=== PATIENT | female | born 1945 | race Caucasian/White ===

== ENCOUNTER → 2017-06-28 17:39 | Emergency (ER) | payer MEDICARE, OTHER ==
[2017-06-28 17:47] VITALS: BP 210/101
== END | disposition left against medical advice (07) ==
LOC: ED 17:39
DX: M54.5 Low back pain (principal); Z53.21 Procedure and treatment not carried out due to patient leaving prior to being seen by health care provider

== ENCOUNTER 2019-03-11 19:13 | Emergency (ER) | payer MEDICARE, OTHER ==
--- NOTE | 2019-03-11 19:52 | ED ---
Adult Trauma - HPI Summary HPI Summary: A 73 y/o female brought in by [facility] ambulance presents to [facility] with a chief complaint of a mechanical fall this afternoon. The patient was putting up a clock on the wall when she fell. The patient rates her pain as a 3/10 in severity. She denies any LOC or neck pain. - History of Current Complaint Chief Complaint: EDHeadInjury Stated Complaint: FALL PER EMS Time Seen by Provider: 03/11/19 19:34 Hx Obtained From: Patient Mechanism of Injury: Fall Loss of Consciousness: no loss of consciousness Onset/Duration: Started Hours Ago, Still Present Onset of Pain: Immediate, Post Accident, Prior to Arrival Onset Severity: Mild Current Severity: Mild Pain Intensity: 3 Pain Scale Used: 0-10 Numeric Location: Head Aggravating Factor(s): Nothing Alleviating Factor(s): Nothing Associated Signs & Symptoms: Negative: Fever, Loss of Consciousness - Allergy/Home Medications Allergies/Adverse Reactions: Allergies Allergy/AdvReac Type Severity Reaction Status Date / Time MS Antihistamines, Allergy See Comment Verified 06/28/17 17:45 Diphenhydrami... [Antihistamines, Diphenhydramine-typ] MS Bee Venom [Bee Venom] Allergy Anaphylatic Verified 06/28/17 17:45 Shock MS Penicillins [Penicillins] Allergy Difficulty Verified 06/28/17 17:45 Breathing PMH/Surg Hx/FS Hx/Imm Hx Respiratory History: Reports: Hx Chronic Obstructive Pulmonary Disease (COPD) Musculoskeletal History: Denies: Hx Osteoporosis Sensory History: Denies: Hx Deafness EENT History: Denies: Hx Deafness - Cancer History Cancer Type, Location and Year: BREAST CA Hx Chemotherapy: Yes Hx Radiation Therapy: Yes - Surgical History Surgery Procedure, Year, and Place: BILATERAL HIP REPLACEMENTS Infectious Disease History: No Infectious Disease History: Denies: Traveled Outside the [place] in Last 30 Days - Family History Known Family History: Negative: Blood Disorder - Social History Alcohol Use: Occasionally Substance Use Type: Reports: None Smoking Status (MU): Former Smoker Review of Systems Negative: Fever Positive: Other - negative: neck pain Positive: Other - positive: scalp laceration Neurological: Other - negative: LOC All Other Systems Reviewed And Are Negative: Yes Physical Exam - Summary Physical Exam Summary: VITAL SIGNS: Reviewed. GENERAL: Patient is a well-developed and nourished FEMALE who is lying comfortable in the stretcher. Patient is not in any acute respiratory distress. HEAD AND FACE: No signs of trauma. No ecchymosis, hematomas or skull depressions. No sinus tenderness. EYES: PERRLA, EOMI x 2, No injected conjunctiva, no nystagmus. EARS: Hearing grossly intact. Ear canals and tympanic membranes are within normal limits. MOUTH: Oropharynx within normal limits. NECK: Supple, trachea is midline, no adenopathy, no JVD, no carotid bruit, no c- spine tenderness, neck with full ROM CHEST: Symmetric, no tenderness at palpation LUNGS: Clear to auscultation bilaterally. No wheezing or crackles. CVS: Regular rate and rhythm, S1 and S2 present, no murmurs or gallops appreciated. ABDOMEN: Soft, non-tender. No signs of distention. No rebound no guarding, and no masses palpated. Bowel sounds are normal. EXTREMITIES: FROM in all major joints, no edema, no cyanosis or clubbing. NEURO: Alert and oriented x 3. No acute neurological deficits. Speech is normal and follows commands. SKIN: Dry and warm, multi branch scalp laceration 3 branches about 1 inch each Triage Information Reviewed: Yes Vital Signs On Initial Exam: Initial Vitals Temp Pulse Resp BP Pulse Ox 97.7 F 79 16 146/87 93 03/11/19 19:17 03/11/19 19:17 03/11/19 19:17 03/11/19 19:17 03/11/19 19:17 Vital Signs Reviewed: Yes - Ramos Coma Scale Best Eye Response: 4 - Spontaneous Best Motor Response: 6 - Obeys Commands Best Verbal Response: 5 - Oriented Coma Scale Total: 15 Procedures - Laceration/Wound Repair 1 Location: head Description: Irregular Anesthesia: 2.0%, Lido, Epi Length, Depth and Shape: multi branch scalp laceration 3 branches about 1 inch each. Closure: [place] #__ - 12 Diagnostics - Vital Signs Vital Signs Temp Pulse Resp BP Pulse Ox 03/11/19 19:17 97.7 F 79 16 146/87 93 - Laboratory Lab Statement: Any lab studies that have been ordered have been reviewed, and results considered in the medical decision making process. - CT Brain CT Interpretation Completed By: Radiologist Summary of CT Findings: 1. Posterior left parietal superficial contusion/ laceration with no acute. intracranial abnormality. 2. Age-related atrophy and mild chronic small vessel ischemic disease. ED physician has reviewed this imaging report. Re-Evaluation - Re-Evaluation First Eval Re-Evaluation Time: 21:50 Change: Unchanged Comment: lac repair Adult Trauma Course/Dx - Course Course Of Treatment: A 73 y/o female brought in by [facility] ambulance presents to [facility] with a chief complaint of a mechanical fall this afternoon. The patient was putting up a clock on the wall when she fell. The physical exam revealed multi branch scalp laceration 3 branches about 1 inch each. GSC 15. Laceration was repaired. Lidociane 2% with epi and [address] impression: 1. Posterior left parietal superficial contusion/laceration with no acute. intracranial abnormality. 2. Age-related atrophy and mild chronic small vessel ischemic disease. The patient was instructed to get her eunice removed in 2 weeks. She will be discharged and follow up with her PCP. The patient is agreeable with this plan. - Diagnoses Provider Diagnoses: Scalp laceration, Head injury Discharge - Sign-Out/Discharge Documenting (check all that apply): Patient Departure - DC Patient Received Moderate/Deep Sedation with Procedure: No - Discharge Plan Condition: Stable Disposition: HOME Patient Education Materials: Laceration (DC), Head Injury (ED) Referrals: Valentín Otoole MD [Primary Care Provider] - 3 Days Additional Instructions: Get your eunice removed in 2 weeks. PLEASE RETURN TO THE ED IMMEDIATELY FOR WORSENING OR CONCERNING SYMPTOMS. - Billing Disposition and Condition Condition: STABLE Disposition: Home - Attestation Statements Document Initiated by Scribe: Yes Documenting Scribe: Vamshi German Provider For Whom Elise is Documenting (Include Credential): Dayanna Martinez MD Scribe Attestation: Vamshi Guerrero, scribed for Dayanna Martinez MD on 03/12/19 at 0510. Scribe Documentation Reviewed: Yes Provider Attestation: The documentation as recorded by the Vamshi lynne accurately reflects the service I personally performed and the decisions made by me, Dayanna Martinez MD Status of Scribe Document: Viewed
[2019-03-11] MEDS ORDERED: Lidocaine 2% w/ EPI 1:200,000* 20 ML VIAL ONE (21:26)
[2019-03-11] MEDS ORDERED: Tetan/Diph/Pertus SYR(Tdap)* 0.5 ML SYR(BOOSTRIX) use SYR IM ONE (21:58)
[2019-03-11 22:13] VITALS: BP 158/101
== END 2019-03-11 22:11 | disposition home or self-care (01) ==
LOC: ED 19:13
DX: S01.01XA Laceration without foreign body of scalp, initial encounter (principal); S09.90XA Unspecified injury of head, initial encounter; Z23 Encounter for immunization; W19.XXXA Unspecified fall, initial encounter; J44.9 Chronic obstructive pulmonary disease, unspecified; Z87.891 Personal history of nicotine dependence
CPT/HCPCS: 12002; 70450; 90471; 90715; 96372; 99283

== ENCOUNTER 2022-03-15 14:27 | Inpatient (IN) ==
[2022-03-15 14:45] LABS: ABS Basophils 0.1 10^3/ul (0-0.2); ABS Lymphocytes 1.7 10^3/ul (1.0-4.8); ABS Monocytes 1.2 10^3/ul (0-0.8); ABS Neutrophils 16.9 10^3/ul (1.5-7.7); Eosinophil % 0.2 %; Hematocrit 34 % (35-47); Hemoglobin 10.8 g/dL (12.0-16.0); Lymphocyte % 8.5 %; Mean Corpuscular HGB Conc 32 g/dL (31-36); Mean Corpuscular Hemoglobin 27 pg (27-31); Mean Corpuscular Volume 84 fL (80-97); Mean Platelet Volume 7.1 fL (7.4-10.4); Platelet Count 511 10^3/uL (150-450); Red Blood Count 4.08 10^6 /uL (3.70-4.87); Red Cell Distribution Width 17 % (10-15); White Blood Count 19.9 10^3/uL (3.5-10.8)
[2022-03-15] MEDS ORDERED: NS 0.9% 1000 ml BAG 1,000 ML IV ONE ×3 (14:50→20:10)
[2022-03-15 15:14] LABS: Albumin 2.9 g/dL (3.2-5.2); Calcium 8.8 mg/dL (8.6-10.3); Globulin 2.8 g/dL (2-4); Magnesium 2.4 mg/dL (1.9-2.7); Potassium 4.8 mmol/L (3.5-5.0); Total Bilirubin 0.5 mg/dL (0.2-1.0); Total Protein 5.7 g/dL (6.4-8.9); eGFR CKD-EPI 25.3 (>60)
[2022-03-15 15:24] LABS: INR 1.05 (0.86-1.15)
[2022-03-15 17:07] LABS: Calcium 7.9 mg/dL (8.6-10.3); Potassium 4.4 mmol/L (3.5-5.0); eGFR CKD-EPI 27.5 (>60)
[2022-03-15] MEDS ORDERED: Morphine 4 MG/ML VIAL (1 ml) IV ONE (17:58)
[2022-03-15] MEDS ORDERED: NS 0.9% 1000 ml BAG 1,000 ML IV SCH (18:15)
[2022-03-15] MEDS ORDERED: Morphine 2 MG/ML SYRINGE IV PRN (18:19)
[2022-03-15] MEDS ORDERED: Heparin 5000 UNITS/ML 1 mL VIAL IV SCH ×2 (20:00→21:00)
[2022-03-15] MEDS ORDERED: Heparin DRIP 25,000 UNITS BAG 25,000 UNITS/500 ML BAG IV SCH (20:15)
[2022-03-15 20:59] LABS: Phosphorus 5.3 mg/dL (2.5-5.0)
[2022-03-15] MEDS ORDERED: Piperacillin/Tazobac ADVAN 3.375 GM in NS 0.9% 100 ml BAG 100 ML IV ONE (21:13)
[2022-03-15 21:14] LABS: TSH Ultra Thyroid Stim Horm 7.58 mcIU/mL (0.34-5.60)
[2022-03-15] MEDS ORDERED: Zosyn per Pharmacy NOTE FOLLOW UP SCH (22:00)
[2022-03-15 22:15] LABS: Urine Benzodiazepine Screen None Detected (None Detect); Urine Cannabinoids Screen None Detected (None Detect); Urine Opiates Screen Presumptive Positive (None Detect)
[2022-03-15 22:19] LABS: T4, Total 3.7 mcg/dL (6.09-12.23)
[2022-03-15 22:21] LABS: Urine Appearance Turbid; Urine Bilirubin Negative (Negative); Urine Blood 2+ (Negative); Urine Color Yellow; Urine Glucose Negative (Negative); Urine Ketones Trace (Negative); Urine Nitrite Negative (Negative); Urine Protein 2+(100 mg/dL) (Negative); Urine Specific Gravity 1.013 (1.002-1.030); Urine Urobilinogen Negative (Negative)
[2022-03-15 22:24] LABS: Urine Bacteria Absent (Absent); Urine Red Blood Cell Absent (Absent); Urine White Blood Cell 3+(>20/hpf) (Absent)
[2022-03-15] MEDS ORDERED: Albuterol HFA INHALER 8 gm MDI INH PRN (22:27)
[2022-03-15] MEDS ORDERED: Dextrose 50% VIAL 50 ml IV PRN (23:31)
[2022-03-16] MEDS ORDERED: Dextrose 50% Syringe 50 ml 25 GM/50 ML SYRINGE IV PUSH PRN (00:02)
[2022-03-16] MEDS: Acetaminophen IV 1 GM/100ML 100 ML IV PRN ×4 (00:36→20:05)
[2022-03-16] MEDS ORDERED: ZOSYN 3.375 GM Q12H per EXTENDED INFUSION IV SCH (06:00)
[2022-03-16 06:52] LABS: ABS Eosinophils 0.1 10^3/ul (0-0.6); ABS Lymphocytes 1.3 10^3/ul (1.0-4.8); ABS Monocytes 1.2 10^3/ul (0-0.8); ABS Neutrophils 13.5 10^3/ul (1.5-7.7); Eosinophil % 0.5 %; Hematocrit 27 % (35-47); Hemoglobin 8.5 g/dL (12.0-16.0); Mean Corpuscular HGB Conc 32 g/dL (31-36); Mean Corpuscular Hemoglobin 27 pg (27-31); Mean Corpuscular Volume 84 fL (80-97); Mean Platelet Volume 7.1 fL (7.4-10.4); Platelet Count 358 10^3/uL (150-450); Red Blood Count 3.16 10^6 /uL (3.70-4.87); Red Cell Distribution Width 17 % (10-15); White Blood Count 16.1 10^3/uL (3.5-10.8)
[2022-03-16] MEDS ORDERED: Morphine 2 MG/ML SYRINGE IV PRN (09:25)
[2022-03-16] MEDS ORDERED: Lactated Ringers 500 ml BAG 500 ML IV ONE (09:34)
[2022-03-16] MEDS: Lactated Ringers 1000 ml BAG 1,000 ML IV SCH ×3 (09:50→21:27)
[2022-03-16 10:54] LABS: Albumin 2.2 g/dL (3.2-5.2); Magnesium 1.9 mg/dL (1.9-2.7)
[2022-03-16 10:55] LABS: Calcium 7.5 mg/dL (8.6-10.3); Potassium 3.7 mmol/L (3.5-5.0); Total Bilirubin 0.6 mg/dL (0.2-1.0)
[2022-03-16 11:00] LABS: Globulin 2.3 g/dL (2-4); HDL Cholesterol 27.3 mg/dL; Total Protein 4.5 g/dL (6.4-8.9)
[2022-03-16 11:04] LABS: eGFR CKD-EPI 32.2 (>60)
[2022-03-16] MEDS ORDERED: NS 0.9% 500 ml BAG 500 ML IV ONE (12:02)
[2022-03-16 12:20] LABS: Urine Appearance Turbid; Urine Bilirubin Negative (Negative); Urine Blood 2+ (Negative); Urine Color Yellow; Urine Glucose Negative (Negative); Urine Ketones Trace (Negative); Urine Nitrite Negative (Negative); Urine Protein 2+(100 mg/dL) (Negative); Urine Specific Gravity 1.015 (1.002-1.030); Urine Urobilinogen Negative (Negative)
[2022-03-16 12:47] LABS: Urine Bacteria Absent (Absent); Urine Red Blood Cell 3+(>10/hpf) (Absent); Urine White Blood Cell 3+(>20/hpf) (Absent)
[2022-03-16] MEDS ORDERED: Norepinephrine 16MCG/ML BAGD5W 4,000 MCG/250 ML BAG IV ONE (13:38)
[2022-03-16] MEDS: Norepinephrine 16MCG/ML BAGD5W 4,000 MCG/250 ML BAG IV SCH (13:55)
[2022-03-16 13:58] LABS: ABS Basophils 0.1 10^3/ul (0-0.2); ABS Eosinophils 0.1 10^3/ul (0-0.6); ABS Lymphocytes 1.3 10^3/ul (1.0-4.8); ABS Monocytes 0.9 10^3/ul (0-0.8); ABS Neutrophils 13.9 10^3/ul (1.5-7.7); Eosinophil % 0.5 %; Hematocrit 26 % (35-47); Hemoglobin 8.1 g/dL (12.0-16.0); Lymphocyte % 7.9 %; Mean Corpuscular HGB Conc 32 g/dL (31-36); Mean Corpuscular Hemoglobin 27 pg (27-31); Mean Corpuscular Volume 85 fL (80-97); Mean Platelet Volume 6.7 fL (7.4-10.4); Platelet Count 366 10^3/uL (150-450); Red Blood Count 3.04 10^6 /uL (3.70-4.87); Red Cell Distribution Width 17 % (10-15); White Blood Count 16.2 10^3/uL (3.5-10.8)
[2022-03-16 14:53] LABS: C Reactive Protein 199.44 mg/L (<8.01); Calcium 7.1 mg/dL (8.6-10.3); Potassium 3.7 mmol/L (3.5-5.0); Total Bilirubin 0.6 mg/dL (0.2-1.0); eGFR CKD-EPI 34.1 (>60)
[2022-03-16 15:43] LABS: Phosphorus 3.6 mg/dL (2.5-5.0)
[2022-03-16] MEDS: Piperacillin/Tazobac ADVAN 3.375 GM in NS 0.9% 100 ml BAG 100 ML IV SCH (17:02)
[2022-03-16] MEDS ORDERED: fentaNYL 100 mcg/2 ml 50 MCG/ML VIAL IV SLOW PU PRN (21:28)
[2022-03-17] MEDS: Piperacillin/Tazobac ADVAN 3.375 GM in NS 0.9% 100 ml BAG 100 ML IV SCH ×3 (00:44→15:50)
[2022-03-17 05:30] LABS: ABS Basophils 0.2 10^3/ul (0-0.2); ABS Eosinophils 0.1 10^3/ul (0-0.6); ABS Lymphocytes 1.6 10^3/ul (1.0-4.8); ABS Monocytes 1.1 10^3/ul (0-0.8); ABS Neutrophils 18.3 10^3/ul (1.5-7.7); Eosinophil % 0.5 %; Hematocrit 28 % (35-47); Hemoglobin 8.7 g/dL (12.0-16.0); Lymphocyte % 7.3 %; Mean Corpuscular HGB Conc 31 g/dL (31-36); Mean Corpuscular Hemoglobin 26 pg (27-31); Mean Corpuscular Volume 83 fL (80-97); Mean Platelet Volume 6.8 fL (7.4-10.4); Platelet Count 392 10^3/uL (150-450); Red Blood Count 3.35 10^6 /uL (3.70-4.87); Red Cell Distribution Width 18 % (10-15); White Blood Count 21.3 10^3/uL (3.5-10.8)
[2022-03-17 06:05] LABS: Albumin 2.1 g/dL (3.2-5.2); C Reactive Protein 278.57 mg/L (<8.01); Calcium 7.3 mg/dL (8.6-10.3); Globulin 2.2 g/dL (2-4); Magnesium 1.5 mg/dL (1.9-2.7); Phosphorus 3.6 mg/dL (2.5-5.0); Potassium 3.7 mmol/L (3.5-5.0); Total Bilirubin 0.7 mg/dL (0.2-1.0); Total Protein 4.3 g/dL (6.4-8.9); eGFR CKD-EPI 38.8 (>60)
[2022-03-17] MEDS: Lactated Ringers 1000 ml BAG 1,000 ML IV SCH ×2 (07:01→15:56)
[2022-03-17] MEDS ORDERED: Magnesium Sulfate IV 3 GM in NS 0.9% 100 ml BAG 100 ML IVPB ONE (07:23)
[2022-03-17] MEDS: Norepinephrine 16MCG/ML BAGD5W 4,000 MCG/250 ML BAG IV SCH ×2 (07:28)
[2022-03-17] MEDS ORDERED: Magnesium Sulfate 4 GM IV IVPB ONE (07:30)
[2022-03-17] MEDS: Acetaminophen IV 1 GM/100ML 100 ML IV PRN (07:34)
[2022-03-17] MEDS ORDERED: Vancomycin per Pharmacy 1 EA NOTE FOLLOW UP PRN (08:17)
[2022-03-17] MEDS ORDERED: Vancomycin 1,000 MG in NS 0.9% 250 ml 250 ML IVPB ONE (08:30)
[2022-03-17] MEDS ORDERED: Magnesium Sulfate 1 GM IV 1 GM/100 ML BAG IV ONE (11:00)
[2022-03-17] MEDS ORDERED: Magnesium Sulfate 2 gm BAG 2 GM/50 ML BAG IVPB ONE (11:00)
[2022-03-17] MEDS ORDERED: Rocuronium 50 mg VIAL 10 mg/ml 5 ml VIAL (50 mg) ONE (11:34)
[2022-03-17] MEDS ORDERED: Dexamethasone IV 4 MG/ML VIAL 1 ml VIAL ONE (11:34)
[2022-03-17] MEDS ORDERED: Propofol 10 MG/ML 20 ML BTL ONE (11:34)
[2022-03-17] MEDS ORDERED: fentaNYL 100 mcg/2 ml 50 MCG/ML VIAL ONE (11:34)
[2022-03-17] MEDS ORDERED: Ondansetron 4 mg VIAL 2 MG/ML 2 ml VIAL ONE (11:34)
[2022-03-17] MEDS ORDERED: Lidocaine 2% PF 5 ML VIAL ONE (11:34)
[2022-03-17] MEDS ORDERED: Midazolam 5 mg/5 ml VIAL 1 mg/ml 5 ml VIAL (5 mg) ONE (12:09)
[2022-03-17] MEDS ORDERED: Etomidate 20 mg/10 ml 2 MG/ML 10 ml VIAL ONE (12:09)
[2022-03-17] MEDS ORDERED: Etomidate 40 mg/20 ml (2 MG/ML) 20 ml VIAL (40 mg) ONE (12:12)
[2022-03-17] MEDS ORDERED: Albumin Human 5% 12.5 GM/250 ML BTL IV ONE ×2 (13:00→14:30)
[2022-03-17] MEDS ORDERED: Norepinephrine 16MCG/ML BAG NS 4,000 MCG/250 ML BAG IV ONE (14:48)
[2022-03-17] MEDS ORDERED: Propofol 10 mg/ml 100 ML BTL 100 ML ONE (15:23)
[2022-03-17] MEDS: Propofol 10 mg/ml 100 ML BTL 100 ML IV SCH (16:09)
[2022-03-17] MEDS: Pantoprazole VIAL 40 MG VIAL IV SCH (17:10)
[2022-03-17] MEDS: Chlorhexidine MOUTHWASH 0.12% 15 ML UDC SWISH SPIT SCH (17:10)
[2022-03-18] MEDS: Chlorhexidine MOUTHWASH 0.12% 15 ML UDC SWISH SPIT SCH ×5 (00:10→14:32)
[2022-03-18] MEDS: Piperacillin/Tazobac ADVAN 3.375 GM in NS 0.9% 100 ml BAG 100 ML IV SCH ×3 (00:12→16:30)
[2022-03-18] MEDS: Acetaminophen IV 1 GM/100ML 100 ML IV PRN ×2 (00:47→09:07)
[2022-03-18] MEDS: Lactated Ringers 1000 ml BAG 1,000 ML IV SCH ×3 (03:20→23:51)
[2022-03-18 04:45] LABS: Hematocrit 27 % (35-47); Hemoglobin 8.2 g/dL (12.0-16.0); Mean Corpuscular HGB Conc 31 g/dL (31-36); Mean Corpuscular Hemoglobin 26 pg (27-31); Mean Corpuscular Volume 83 fL (80-97); Mean Platelet Volume 7.2 fL (7.4-10.4); Platelet Count 311 10^3/uL (150-450); Red Blood Count 3.21 10^6 /uL (3.70-4.87); Red Cell Distribution Width 18 % (10-15); White Blood Count 26.1 10^3/uL (3.5-10.8)
[2022-03-18 05:04] LABS: Albumin 2.2 g/dL (3.2-5.2); Albumin/Globulin Ratio 1.3 (1-3); Calcium 7.2 mg/dL (8.6-10.3); Globulin 1.7 g/dL (2-4); Magnesium 2.5 mg/dL (1.9-2.7); Phosphorus 4.3 mg/dL (2.5-5.0); Potassium 4.3 mmol/L (3.5-5.0); Total Bilirubin 0.7 mg/dL (0.2-1.0); Total Protein 3.9 g/dL (6.4-8.9); Vancomycin Random 9.6 mcg/mL; eGFR CKD-EPI 41.6 (>60)
[2022-03-18] MEDS: Norepinephrine 16MCG/ML BAGD5W 4,000 MCG/250 ML BAG IV SCH (05:45)
[2022-03-18] MEDS ORDERED: Vancomycin Random Level NOTE FOLLOW UP ONE (06:00)
[2022-03-18 07:14] LABS: ABS Basophils 0.1 10^3/ul (0-0.2); ABS Lymphocytes 0.8 10^3/ul (1.0-4.8); ABS Monocytes 0.8 10^3/ul (0-0.8); ABS Neutrophils 24.5 10^3/ul (1.5-7.7); Lymphocyte % 3.2 %
[2022-03-18] MEDS: Propofol 10 mg/ml 100 ML BTL 100 ML IV SCH (07:20)
[2022-03-18] MEDS: Pantoprazole VIAL 40 MG VIAL IV SCH (07:55)
[2022-03-18] MEDS ORDERED: Vancomycin 750 MG in NS 0.9% 250 ML IVPB ONE (09:00)
[2022-03-19] MEDS: Piperacillin/Tazobac ADVAN 3.375 GM in NS 0.9% 100 ml BAG 100 ML IV SCH ×3 (00:16→17:10)
[2022-03-19 05:10] LABS: ABS Basophils 0.1 10^3/ul (0-0.2); ABS Monocytes 1.1 10^3/ul (0-0.8); ABS Neutrophils 18.1 10^3/ul (1.5-7.7); Hematocrit 23 % (35-47); Lymphocyte % 4.9 %; Mean Corpuscular HGB Conc 31 g/dL (31-36); Mean Corpuscular Hemoglobin 26 pg (27-31); Mean Corpuscular Volume 84 fL (80-97); Mean Platelet Volume 7.5 fL (7.4-10.4); Platelet Count 254 10^3/uL (150-450); Red Blood Count 2.67 10^6 /uL (3.70-4.87); Red Cell Distribution Width 19 % (10-15); White Blood Count 20.3 10^3/uL (3.5-10.8)
[2022-03-19 05:27] LABS: Albumin/Globulin Ratio 1.1 (1-3); Globulin 1.8 g/dL (2-4); Magnesium 2.1 mg/dL (1.9-2.7); Phosphorus 3.6 mg/dL (2.5-5.0); Potassium 4.3 mmol/L (3.5-5.0); Total Bilirubin 0.4 mg/dL (0.2-1.0); Total Protein 3.8 g/dL (6.4-8.9); Vancomycin Random 12.6 mcg/mL; eGFR CKD-EPI 48.5 (>60)
[2022-03-19] MEDS ORDERED: Vancomycin Random Level NOTE FOLLOW UP ONE (06:00)
[2022-03-19 07:53] LABS: C Reactive Protein 228.69 mg/L (<8.01)
[2022-03-19] MEDS: Pantoprazole VIAL 40 MG VIAL IV SCH (10:16)
[2022-03-19 10:21] LABS: Activated Partial Thrombo Time 33.3 seconds (26.0-38.0); INR 1.15 (0.86-1.15)
[2022-03-19 12:50] LABS: Hematocrit 24 % (35-47); Hemoglobin 7.4 g/dL (12.0-16.0)
[2022-03-19] MEDS ORDERED: Vancomycin 750 MG in NS 0.9% 250 ML IVPB ONE (15:00)
[2022-03-19] MEDS: Heparin 5000 UNITS/ML 1 mL VIAL SUBCUT SCH (20:46)
[2022-03-20] MEDS: Piperacillin/Tazobac ADVAN 3.375 GM in NS 0.9% 100 ml BAG 100 ML IV SCH ×3 (00:17→16:57)
[2022-03-20 04:25] LABS: Hematocrit 24 % (35-47); Hemoglobin 7.6 g/dL (12.0-16.0); Mean Corpuscular HGB Conc 31 g/dL (31-36); Mean Corpuscular Hemoglobin 27 pg (27-31); Mean Corpuscular Volume 85 fL (80-97); Mean Platelet Volume 7.3 fL (7.4-10.4); Platelet Count 226 10^3/uL (150-450); Red Blood Count 2.86 10^6 /uL (3.70-4.87); Red Cell Distribution Width 19 % (10-15); White Blood Count 16.3 10^3/uL (3.5-10.8)
[2022-03-20 05:04] LABS: C Reactive Protein 186.74 mg/L (<8.01); Calcium 7.4 mg/dL (8.6-10.3); Magnesium 1.9 mg/dL (1.9-2.7); Potassium 4.3 mmol/L (3.5-5.0); Vancomycin Random 16.2 mcg/mL; eGFR CKD-EPI 55.1 (>60)
[2022-03-20 06:00] LABS: Anisocytosis 1+; Basophilic Stippling 1+
[2022-03-20] MEDS ORDERED: Vancomycin Random Level NOTE FOLLOW UP ONE (06:00)
[2022-03-20 06:01] LABS: RBC Morphology Normal (Normal)
[2022-03-20 06:02] LABS: ABS Eosinophils 0.1 10^3/ul (0-0.6); ABS Lymphocytes 1.1 10^3/ul (1.0-4.8); ABS Monocytes 1.3 10^3/ul (0-0.8); ABS Neutrophils 13.7 10^3/ul (1.5-7.7); Eosinophil % 0.5 %; Lymphocyte % 6.9 %; Nucleated Red Blood Cells % 0.1
[2022-03-20] MEDS: Heparin 5000 UNITS/ML 1 mL VIAL SUBCUT SCH (09:15)
[2022-03-20] MEDS: Pantoprazole VIAL 40 MG VIAL IV SCH (09:15)
[2022-03-20] MEDS: Vancomycin 750 MG in NS 0.9% 250 ML IVPB SCH (10:08)
[2022-03-20] MEDS: Acetaminophen IV 1 GM/100ML 100 ML IV PRN ×2 (10:35→20:53)
[2022-03-20] MEDS ORDERED: Prochlorperazine 5 mg/ml 2 ml VIAL (10 mg) IV PRN (11:41)
[2022-03-20] MEDS: fentaNYL 100 mcg/2 ml 50 MCG/ML VIAL IV SLOW PU PRN (23:46)
[2022-03-21] MEDS: Piperacillin/Tazobac ADVAN 3.375 GM in NS 0.9% 100 ml BAG 100 ML IV SCH ×4 (00:25→23:58)
[2022-03-21 04:17] LABS: Hematocrit 23 % (35-47); Hemoglobin 6.9 g/dL (12.0-16.0); Mean Corpuscular HGB Conc 30 g/dL (31-36); Mean Corpuscular Hemoglobin 25 pg (27-31); Mean Corpuscular Volume 84 fL (80-97); Mean Platelet Volume 7.5 fL (7.4-10.4); Platelet Count 238 10^3/uL (150-450); Red Blood Count 2.73 10^6 /uL (3.70-4.87); Red Cell Distribution Width 19 % (10-15); White Blood Count 12.5 10^3/uL (3.5-10.8)
[2022-03-21 04:29] LABS: ABS Basophils 0.1 10^3/ul (0-0.2); ABS Eosinophils 0.2 10^3/ul (0-0.6); ABS Lymphocytes 1.3 10^3/ul (1.0-4.8); ABS Monocytes 1.2 10^3/ul (0-0.8); ABS Neutrophils 9.7 10^3/ul (1.5-7.7); Eosinophil % 1.8 %; Lymphocyte % 10.3 %; Nucleated Red Blood Cells % 0.1
[2022-03-21 04:41] LABS: Calcium 7.1 mg/dL (8.6-10.3); Magnesium 1.7 mg/dL (1.9-2.7); Potassium 4.1 mmol/L (3.5-5.0); eGFR CKD-EPI 66.2 (>60)
[2022-03-21] MEDS ORDERED: Magnesium Sulfate 2 gm BAG 2 GM/50 ML BAG IVPB ONE (08:00)
[2022-03-21] MEDS: Pantoprazole VIAL 40 MG VIAL IV SCH (09:00)
[2022-03-21] MEDS: Vancomycin 750 MG in NS 0.9% 250 ML IVPB SCH (09:00)
[2022-03-21] MEDS: fentaNYL 100 mcg/2 ml 50 MCG/ML VIAL IV SLOW PU PRN ×4 (09:08→23:55)
[2022-03-21 15:38] LABS: Hematocrit 26 % (35-47); Hemoglobin 7.8 g/dL (12.0-16.0)
[2022-03-21] MEDS ORDERED: NS 0.9% 100 ml BAG 100 ML ONE (18:05)
[2022-03-22] MEDS ORDERED: NS 0.9% 1000 ml BAG 250 ML IV ONE (03:30)
[2022-03-22 06:08] LABS: ABS Basophils 0.1 10^3/ul (0-0.2); ABS Eosinophils 0.2 10^3/ul (0-0.6); ABS Lymphocytes 1.8 10^3/ul (1.0-4.8); ABS Monocytes 1.2 10^3/ul (0-0.8); ABS Neutrophils 13.4 10^3/ul (1.5-7.7); Eosinophil % 1.2 %; Hematocrit 23 % (35-47); Hemoglobin 7.2 g/dL (12.0-16.0); Lymphocyte % 10.5 %; Mean Corpuscular HGB Conc 31 g/dL (31-36); Mean Corpuscular Hemoglobin 26 pg (27-31); Mean Corpuscular Volume 84 fL (80-97); Platelet Count 356 10^3/uL (150-450); Red Blood Count 2.78 10^6 /uL (3.70-4.87); Red Cell Distribution Width 19 % (10-15); White Blood Count 16.6 10^3/uL (3.5-10.8)
[2022-03-22] MEDS: fentaNYL 100 mcg/2 ml 50 MCG/ML VIAL IV SLOW PU PRN ×4 (06:33→19:32)
[2022-03-22 06:35] LABS: Albumin 1.8 g/dL (3.2-5.2); Calcium 7.4 mg/dL (8.6-10.3); Magnesium 1.9 mg/dL (1.9-2.7); Potassium 4.3 mmol/L (3.5-5.0); Total Bilirubin 0.5 mg/dL (0.2-1.0)
[2022-03-22 06:41] LABS: Albumin/Globulin Ratio 0.9 (1-3); Total Protein 3.8 g/dL (6.4-8.9)
[2022-03-22] MEDS: Piperacillin/Tazobac ADVAN 3.375 GM in NS 0.9% 100 ml BAG 100 ML IV SCH ×2 (07:58→16:28)
[2022-03-22] MEDS: Saline FLUSH-CENTRAL 10 ML SYRINGE CENT\\PICC SCH ×2 (07:59→19:33)
[2022-03-22] MEDS ORDERED: Metoprolol Tartrate 5 mg VIAL 5 ml VIAL (1 mg/ml) IV ONE (08:20)
[2022-03-22] MEDS ORDERED: Vancomycin Trough Check NOTE FOLLOW UP ONE (08:30)
[2022-03-22] MEDS: Vancomycin 750 MG in NS 0.9% 250 ML IVPB SCH (08:55)
[2022-03-22] MEDS: Pantoprazole VIAL 40 MG VIAL IV SCH (09:06)
[2022-03-22] MEDS ORDERED: Digoxin IV 0.5 MG/2 ML AMP (0.25 MG/ML) IV SLOW PU ONE (16:05)
[2022-03-22] MEDS ORDERED: NS 0.9% 250 ml 250 ML IV ONE (21:03)
[2022-03-23] MEDS: Piperacillin/Tazobac ADVAN 3.375 GM in NS 0.9% 100 ml BAG 100 ML IV SCH ×3 (02:00→16:19)
[2022-03-23] MEDS: fentaNYL 100 mcg/2 ml 50 MCG/ML VIAL IV SLOW PU PRN (04:57)
[2022-03-23 06:30] LABS: Calcium 7.2 mg/dL (8.6-10.3); Magnesium 1.5 mg/dL (1.9-2.7); Potassium 4.4 mmol/L (3.5-5.0)
[2022-03-23 06:36] LABS: ABS Basophils 0.1 10^3/ul (0-0.2); ABS Eosinophils 0.2 10^3/ul (0-0.6); ABS Lymphocytes 1.9 10^3/ul (1.0-4.8); ABS Neutrophils 11.9 10^3/ul (1.5-7.7); Eosinophil % 1.3 %; Hematocrit 22 % (35-47); Hemoglobin 6.9 g/dL (12.0-16.0); Lymphocyte % 12.3 %; Mean Corpuscular HGB Conc 31 g/dL (31-36); Mean Corpuscular Hemoglobin 27 pg (27-31); Mean Corpuscular Volume 86 fL (80-97); Mean Platelet Volume 8.2 fL (7.4-10.4); Nucleated Red Blood Cells % 0.1; Platelet Count 456 10^3/uL (150-450); Red Blood Count 2.58 10^6 /uL (3.70-4.87); Red Cell Distribution Width 20 % (10-15); White Blood Count 15.1 10^3/uL (3.5-10.8); eGFR CKD-EPI 84.8 (>60)
[2022-03-23] MEDS ORDERED: Magnesium Sulfate 2 gm BAG 2 GM/50 ML BAG IVPB ONE (07:14)
[2022-03-23] MEDS ORDERED: Magnesium Sulfate 4 GM IV IVPB ONE (07:30)
[2022-03-23] MEDS: Saline FLUSH-CENTRAL 10 ML SYRINGE CENT\\PICC SCH ×2 (08:15→19:37)
[2022-03-23] MEDS: Pantoprazole VIAL 40 MG VIAL IV SCH (08:26)
[2022-03-23] MEDS: Vancomycin 750 MG in NS 0.9% 250 ML IVPB SCH (08:45)
[2022-03-23] MEDS ORDERED: Magnesium Sulfate IV 3 GM in NS 0.9% 100 ml BAG 100 ML IVPB ONE (10:00)
[2022-03-23] MEDS ORDERED: Magnesium Sulfate 1 GM IV 1 GM/100 ML BAG IV ONE (10:30)
[2022-03-23] MEDS: Lactated Ringers 500 ml BAG 500 ML IV ONE ×2 (12:20→13:43)
[2022-03-23 17:56] LABS: Hematocrit 28 % (35-47); Hemoglobin 8.8 g/dL (12.0-16.0)
[2022-03-24] MEDS: Piperacillin/Tazobac ADVAN 3.375 GM in NS 0.9% 100 ml BAG 100 ML IV SCH ×3 (00:58→16:57)
[2022-03-24 06:18] LABS: ABS Basophils 0.1 10^3/ul (0-0.2); ABS Eosinophils 0.2 10^3/ul (0-0.6); ABS Lymphocytes 1.7 10^3/ul (1.0-4.8); ABS Monocytes 1.1 10^3/ul (0-0.8); ABS Neutrophils 15.5 10^3/ul (1.5-7.7); Hematocrit 27 % (35-47); Hemoglobin 8.3 g/dL (12.0-16.0); Lymphocyte % 9.3 %; Mean Corpuscular HGB Conc 31 g/dL (31-36); Mean Corpuscular Hemoglobin 26 pg (27-31); Mean Corpuscular Volume 83 fL (80-97); Mean Platelet Volume 7.9 fL (7.4-10.4); Nucleated Red Blood Cells % 0.1; Platelet Count 476 10^3/uL (150-450); Red Blood Count 3.23 10^6 /uL (3.70-4.87); Red Cell Distribution Width 19 % (10-15); White Blood Count 18.6 10^3/uL (3.5-10.8)
[2022-03-24 06:58] LABS: Albumin 1.9 g/dL (3.2-5.2); Calcium 7.1 mg/dL (8.6-10.3); Magnesium 2.2 mg/dL (1.9-2.7); Potassium 4.5 mmol/L (3.5-5.0); Total Bilirubin 0.9 mg/dL (0.2-1.0)
[2022-03-24 07:03] LABS: Albumin/Globulin Ratio 0.9 (1-3); Globulin 2.1 g/dL (2-4); Phosphorus 3.2 mg/dL (2.5-5.0); eGFR CKD-EPI 86.2 (>60)
[2022-03-24] MEDS: Saline FLUSH-CENTRAL 10 ML SYRINGE CENT\\PICC SCH ×2 (08:27→20:01)
[2022-03-24] MEDS: Pantoprazole VIAL 40 MG VIAL IV SCH (08:42)
[2022-03-24] MEDS ORDERED: Iohexol 350 (CONTRAST) 500 ML MDV IV ONE (10:22)
[2022-03-24] MEDS: Digoxin IV 0.5 MG/2 ML AMP (0.25 MG/ML) IV SLOW PU SCH ×2 (16:57→17:49)
[2022-03-24] MEDS ORDERED: Lactated Ringers 500 ml BAG 500 ML IV ONE (17:09)
[2022-03-24 19:15] LABS: Rapid COVID-19 Molecular Undetected (Undetected)
[2022-03-24] MEDS: Lactated Ringers 1000 ml BAG 1,000 ML IV SCH (23:50)
[2022-03-24] MEDS ORDERED: Lactated Ringers 1000 ml BAG 1,000 ML IV SCH (23:59)
[2022-03-25] MEDS: Piperacillin/Tazobac ADVAN 3.375 GM in NS 0.9% 100 ml BAG 100 ML IV SCH ×3 (00:14→16:33)
[2022-03-25] MEDS: Digoxin IV 0.5 MG/2 ML AMP (0.25 MG/ML) IV SLOW PU SCH ×2 (01:36→08:06)
[2022-03-25] MEDS: Acetaminophen IV 1 GM/100ML 100 ML IV PRN ×2 (03:32→17:44)
[2022-03-25 04:27] LABS: ABS Basophils 0.1 10^3/ul (0-0.2); ABS Eosinophils 0.2 10^3/ul (0-0.6); ABS Lymphocytes 1.6 10^3/ul (1.0-4.8); ABS Neutrophils 13.1 10^3/ul (1.5-7.7); Eosinophil % 1.1 %; Hematocrit 23 % (35-47); Lymphocyte % 9.8 %; Mean Corpuscular HGB Conc 31 g/dL (31-36); Mean Corpuscular Hemoglobin 27 pg (27-31); Mean Corpuscular Volume 86 fL (80-97); Mean Platelet Volume 8.2 fL (7.4-10.4); Platelet Count 456 10^3/uL (150-450); Red Blood Count 2.64 10^6 /uL (3.70-4.87); Red Cell Distribution Width 20 % (10-15); White Blood Count 15.9 10^3/uL (3.5-10.8)
[2022-03-25 05:14] LABS: Magnesium 1.7 mg/dL (1.9-2.7); Phosphorus 3.3 mg/dL (2.5-5.0); Potassium 4.5 mmol/L (3.5-5.0); eGFR CKD-EPI 87.7 (>60)
[2022-03-25] MEDS: Pantoprazole VIAL 40 MG VIAL IV SCH (08:07)
[2022-03-25] MEDS ORDERED: Magnesium Sulfate 2 gm BAG 2 GM/50 ML BAG IV ONE (09:15)
[2022-03-25] MEDS: Saline FLUSH-CENTRAL 10 ML SYRINGE CENT\\PICC SCH ×2 (09:21→21:13)
[2022-03-25] MEDS ORDERED: Magnesium Sulfate 1 GM IV 1 GM/100 ML BAG IV ONE (10:15)
[2022-03-25] MEDS ORDERED: Propofol 10 MG/ML 20 ML BTL ONE ×2 (11:29→12:11)
[2022-03-25] MEDS ORDERED: fentaNYL 100 mcg/2 ml 50 MCG/ML VIAL ONE (11:58)
[2022-03-25] MEDS ORDERED: Ondansetron 4 mg VIAL 2 MG/ML 2 ml VIAL ONE (12:11)
[2022-03-25] MEDS ORDERED: Lidocaine 2% PF 5 ML VIAL ONE (12:12)
[2022-03-25 14:45] LABS: Total Iron Binding Capacity 126 mcg/dL (250-450); Transferrin 90 mg/dL (203-362)
[2022-03-25 14:48] LABS: % Iron Saturation 16 % (15-55); Iron < 20 ug/dL (50-212); Unsaturated Iron Binding 106 ug/dL
[2022-03-25 15:05] LABS: Ferritin 258.7 ng/mL (11-307)
[2022-03-25 15:08] LABS: ABS Basophils 0.1 10^3/ul (0-0.2); ABS Eosinophils 0.2 10^3/ul (0-0.6); ABS Lymphocytes 1.2 10^3/ul (1.0-4.8); ABS Monocytes 0.8 10^3/ul (0-0.8); ABS Neutrophils 13.9 10^3/ul (1.5-7.7); Eosinophil % 1.3 %; Hematocrit 25 % (35-47); Hemoglobin 7.6 g/dL (12.0-16.0); Lymphocyte % 7.5 %; Mean Corpuscular HGB Conc 30 g/dL (31-36); Mean Corpuscular Hemoglobin 26 pg (27-31); Mean Corpuscular Volume 86 fL (80-97); Mean Platelet Volume 7.8 fL (7.4-10.4); Platelet Count 427 10^3/uL (150-450); Red Blood Count 2.91 10^6 /uL (3.70-4.87); Red Cell Distribution Width 20 % (10-15); White Blood Count 16.1 10^3/uL (3.5-10.8)
[2022-03-25 15:09] LABS: Vitamin B12 1074 pg/mL (180-914)
[2022-03-25] MEDS ORDERED: Alteplase (CATHFLO) 2 MG VIAL IV ONE (15:10)
[2022-03-25] MEDS: Enoxaparin 60 MG/0.6 ML SYR SUBCUT SCH (21:14)
[2022-03-25] MEDS: Lactated Ringers 1000 ml BAG 1,000 ML IV SCH (22:05)
[2022-03-26] MEDS: Piperacillin/Tazobac ADVAN 3.375 GM in NS 0.9% 100 ml BAG 100 ML IV SCH ×3 (00:04→17:12)
[2022-03-26 04:57] LABS: ABS Basophils 0.1 10^3/ul (0-0.2); ABS Eosinophils 0.2 10^3/ul (0-0.6); ABS Lymphocytes 0.9 10^3/ul (1.0-4.8); ABS Monocytes 0.7 10^3/ul (0-0.8); Eosinophil % 1.6 %; Hematocrit 23 % (35-47); Hemoglobin 7.2 g/dL (12.0-16.0); Mean Corpuscular HGB Conc 32 g/dL (31-36); Mean Corpuscular Hemoglobin 27 pg (27-31); Mean Corpuscular Volume 85 fL (80-97); Mean Platelet Volume 8.1 fL (7.4-10.4); Platelet Count 427 10^3/uL (150-450); Red Blood Count 2.67 10^6 /uL (3.70-4.87); Red Cell Distribution Width 20 % (10-15)
[2022-03-26 05:42] LABS: Calcium 7.1 mg/dL (8.6-10.3); Magnesium 1.9 mg/dL (1.9-2.7); Phosphorus 3.3 mg/dL (2.5-5.0); Potassium 4.7 mmol/L (3.5-5.0); eGFR CKD-EPI 94.1 (>60)
[2022-03-26] MEDS: Pantoprazole VIAL 40 MG VIAL IV SCH (08:50)
[2022-03-26] MEDS: Enoxaparin 60 MG/0.6 ML SYR SUBCUT SCH ×2 (08:50→21:07)
[2022-03-26] MEDS: Saline FLUSH-CENTRAL 10 ML SYRINGE CENT\\PICC SCH (08:50)
[2022-03-26] MEDS ORDERED: Calcium Carbonate LIQ 1,250 mg/5 ml UDC PO SCH (10:00)
[2022-03-26] MEDS ORDERED: Calcium Carb (TUMS) 500 mg CHEW TAB PO ONE (11:15)
[2022-03-26] MEDS: Acetaminophen IV 1 GM/100ML 100 ML IV PRN (13:11)
[2022-03-27] MEDS: Piperacillin/Tazobac ADVAN 3.375 GM in NS 0.9% 100 ml BAG 100 ML IV SCH ×3 (00:09→16:44)
[2022-03-27 04:55] LABS: ABS Basophils 0.1 10^3/ul (0-0.2); ABS Eosinophils 0.3 10^3/ul (0-0.6); ABS Lymphocytes 1.1 10^3/ul (1.0-4.8); ABS Monocytes 0.8 10^3/ul (0-0.8); ABS Neutrophils 10.1 10^3/ul (1.5-7.7); Eosinophil % 2.2 %; Hematocrit 22 % (35-47); Hemoglobin 6.9 g/dL (12.0-16.0); Lymphocyte % 8.7 %; Mean Corpuscular HGB Conc 31 g/dL (31-36); Mean Corpuscular Hemoglobin 27 pg (27-31); Mean Corpuscular Volume 85 fL (80-97); Mean Platelet Volume 8.2 fL (7.4-10.4); Platelet Count 455 10^3/uL (150-450); Red Blood Count 2.59 10^6 /uL (3.70-4.87); Red Cell Distribution Width 20 % (10-15); White Blood Count 12.4 10^3/uL (3.5-10.8)
[2022-03-27 05:25] LABS: Magnesium 1.6 mg/dL (1.9-2.7); Phosphorus 2.8 mg/dL (2.5-5.0); Potassium 4.5 mmol/L (3.5-5.0); eGFR CKD-EPI 94.5 (>60)
[2022-03-27] MEDS ORDERED: Magnesium Sulfate 2 gm BAG 2 GM/50 ML BAG IVPB ONE (07:41)
[2022-03-27] MEDS: Pantoprazole VIAL 40 MG VIAL IV SCH (08:24)
[2022-03-27] MEDS: Enoxaparin 60 MG/0.6 ML SYR SUBCUT SCH ×2 (08:24→21:13)
[2022-03-27] MEDS ORDERED: Haloperidol 5 mg/ml SDV IV/IM 5 MG/ML AMP IV SLOW PU ONE (22:42)
[2022-03-28] MEDS: Piperacillin/Tazobac ADVAN 3.375 GM in NS 0.9% 100 ml BAG 100 ML IV SCH ×3 (00:14→16:59)
[2022-03-28] MEDS ORDERED: Haloperidol 5 mg/ml SDV IV/IM 5 MG/ML AMP IV SLOW PU ONE (02:54)
[2022-03-28 06:31] LABS: Hematocrit 21 % (35-47); Hemoglobin 6.7 g/dL (12.0-16.0); Mean Corpuscular HGB Conc 31 g/dL (31-36); Mean Corpuscular Hemoglobin 27 pg (27-31); Mean Corpuscular Volume 85 fL (80-97); Mean Platelet Volume 8.6 fL (7.4-10.4); Platelet Count 507 10^3/uL (150-450); Red Blood Count 2.51 10^6 /uL (3.70-4.87); Red Cell Distribution Width 20 % (10-15); White Blood Count 10.5 10^3/uL (3.5-10.8)
[2022-03-28 06:48] LABS: Calcium 7.1 mg/dL (8.6-10.3); Magnesium 1.7 mg/dL (1.9-2.7); Potassium 4.5 mmol/L (3.5-5.0); eGFR CKD-EPI 94.5 (>60)
[2022-03-28] MEDS ORDERED: Magnesium Sulfate 2 gm BAG 2 GM/50 ML BAG IVPB ONE (07:13)
[2022-03-28] MEDS: Enoxaparin 60 MG/0.6 ML SYR SUBCUT SCH (08:52)
[2022-03-28] MEDS: Pantoprazole VIAL 40 MG VIAL IV SCH (08:52)
[2022-03-29] MEDS: Piperacillin/Tazobac ADVAN 3.375 GM in NS 0.9% 100 ml BAG 100 ML IV SCH ×3 (01:19→16:18)
[2022-03-29] MEDS: Acetaminophen IV 1 GM/100ML 100 ML IV PRN (05:28)
[2022-03-29 05:33] LABS: Hematocrit 27 % (35-47); Hemoglobin 8.7 g/dL (12.0-16.0); Mean Corpuscular HGB Conc 32 g/dL (31-36); Mean Corpuscular Hemoglobin 27 pg (27-31); Mean Corpuscular Volume 85 fL (80-97); Platelet Count 545 10^3/uL (150-450); Red Blood Count 3.19 10^6 /uL (3.70-4.87); Red Cell Distribution Width 18 % (10-15); White Blood Count 13.2 10^3/uL (3.5-10.8)
[2022-03-29 05:37] LABS: Calcium 7.2 mg/dL (8.6-10.3); Magnesium 1.9 mg/dL (1.9-2.7)
[2022-03-29 05:44] LABS: Potassium 5.2 mmol/L (3.5-5.0)
[2022-03-29] MEDS: Pantoprazole VIAL 40 MG VIAL IV SCH (08:56)
[2022-03-29] MEDS: Enoxaparin 40 MG/0.4 ML SYR SUBCUT SCH (09:00)
[2022-03-29] MEDS: Collagenase 250 units/gm OINT 1 tube TOPICAL SCH (11:35)
[2022-03-29 12:01] LABS: Calcium 7.4 mg/dL (8.6-10.3); Potassium 4.6 mmol/L (3.5-5.0)
[2022-03-29 12:07] LABS: eGFR CKD-EPI 77.3 (>60)
[2022-03-29 12:12] LABS: Urine Appearance Cloudy; Urine Bilirubin Negative (Negative); Urine Blood 2+ (Negative); Urine Color Yellow; Urine Glucose Negative (Negative); Urine Ketones Negative (Negative); Urine Nitrite Negative (Negative); Urine Protein 1+(30 mg/dL) (Negative); Urine Specific Gravity 1.019 (1.002-1.030); Urine Urobilinogen Negative (Negative)
[2022-03-29 12:18] LABS: Urine Bacteria Absent (Absent); Urine Red Blood Cell 3+(>10/hpf) (Absent); Urine White Blood Cell 3+(>20/hpf) (Absent); Urine Yeast Present (Absent)
[2022-03-30] MEDS: Piperacillin/Tazobac ADVAN 3.375 GM in NS 0.9% 100 ml BAG 100 ML IV SCH ×3 (00:40→16:40)
[2022-03-30 05:29] LABS: Hematocrit 25 % (35-47); Hemoglobin 7.8 g/dL (12.0-16.0); Mean Corpuscular HGB Conc 32 g/dL (31-36); Mean Corpuscular Hemoglobin 27 pg (27-31); Mean Corpuscular Volume 84 fL (80-97); Mean Platelet Volume 8.7 fL (7.4-10.4); Platelet Count 591 10^3/uL (150-450); Red Blood Count 2.96 10^6 /uL (3.70-4.87); Red Cell Distribution Width 19 % (10-15); White Blood Count 11.7 10^3/uL (3.5-10.8)
[2022-03-30 06:08] LABS: C Reactive Protein 240.51 mg/L (<8.01); Calcium 7.4 mg/dL (8.6-10.3); Potassium 4.6 mmol/L (3.5-5.0); eGFR CKD-EPI 92.7 (>60)
[2022-03-30] MEDS: Enoxaparin 40 MG/0.4 ML SYR SUBCUT SCH (09:07)
[2022-03-30] MEDS: Pantoprazole VIAL 40 MG VIAL IV SCH (09:08)
[2022-03-30] MEDS ORDERED: Vancomycin 1,000 MG in NS 0.9% 250 ml 250 ML IVPB SCH (11:49)
[2022-03-30] MEDS ORDERED: Vancomycin 1000 MG in NS 0.9% 250 ML IVPB ONE (13:00)
[2022-03-30] MEDS ORDERED: Vancomycin per Pharmacy 1 EA NOTE FOLLOW UP PRN (15:16)
[2022-03-30] MEDS: Collagenase 250 units/gm OINT 1 tube TOPICAL SCH (16:41)
[2022-03-30] MEDS: Multivitamins/Minerals TAB PO SCH (17:31)
[2022-03-30] MEDS: Enoxaparin 60 MG/0.6 ML SYR SUBCUT SCH (20:16)
[2022-03-30] MEDS ORDERED: Thiamine 100 MG/ML 2 ml VIAL (200 mg) ONE (21:45)
[2022-03-30] MEDS ORDERED: NS 0.9% IV SCH (22:00)
[2022-03-30] MEDS ORDERED: THIAMINE IV SCH (22:00)
[2022-03-30] MEDS: Thiamine 100 MG/ML 2 ml VIAL 200 MG in NS 0.9% 100 ml BAG 100 ML IV SCH (22:06)
[2022-03-31] MEDS: Piperacillin/Tazobac ADVAN 3.375 GM in NS 0.9% 100 ml BAG 100 ML IV SCH ×2 (00:37→08:18)
[2022-03-31] MEDS ORDERED: Vancomycin 750 MG in NS 0.9% 250 ML IVPB SCH (02:00)
[2022-03-31] MEDS: Thiamine 100 MG/ML 2 ml VIAL 200 MG in NS 0.9% 100 ml BAG 100 ML IV SCH ×3 (05:52→21:22)
[2022-03-31 06:03] LABS: ABS Basophils 0.4 10^3/ul (0-0.2); ABS Eosinophils 0.3 10^3/ul (0-0.6); ABS Lymphocytes 1.7 10^3/ul (1.0-4.8); ABS Monocytes 1.3 10^3/ul (0-0.8); ABS Neutrophils 6.9 10^3/ul (1.5-7.7); Eosinophil % 2.4 %; Hematocrit 22 % (35-47); Hemoglobin 7.3 g/dL (12.0-16.0); Lymphocyte % 15.8 %; Mean Corpuscular HGB Conc 33 g/dL (31-36); Mean Corpuscular Hemoglobin 28 pg (27-31); Mean Corpuscular Volume 86 fL (80-97); Mean Platelet Volume 8.5 fL (7.4-10.4); Platelet Count 728 10^3/uL (150-450); Red Cell Distribution Width 19 % (10-15); White Blood Count 10.6 10^3/uL (3.5-10.8)
[2022-03-31] MEDS: Vancomycin 500 MG in NS 0.9% 250 ML IVPB SCH ×2 (06:20→18:27)
[2022-03-31 06:38] LABS: Magnesium 1.3 mg/dL (1.9-2.7); Potassium 3.8 mmol/L (3.5-5.0); eGFR CKD-EPI 97.9 (>60)
[2022-03-31 07:03] LABS: Folate 17.27 ng/mL (5.90-24.80)
[2022-03-31 07:13] LABS: Calcium 6.5 mg/dL (8.6-10.3)
[2022-03-31] MEDS ORDERED: Magnesium Sulf 4 GM/100 ML IV 4,000 MG/100 ML BAG IVPB ONE (09:00)
[2022-03-31] MEDS ORDERED: D5W 1/2 NS 1000 ml BAG 1,000 ML IV SCH (09:00)
[2022-03-31] MEDS ORDERED: cefTRIAXone 1 gm/50 mL D5W 1 GM/50 ML BAG IV SCH (09:45)
[2022-03-31] MEDS: Pantoprazole VIAL 40 MG VIAL IV SCH (10:51)
[2022-03-31] MEDS: Multivitamins/Minerals TAB PO SCH (10:51)
[2022-03-31] MEDS: Enoxaparin 60 MG/0.6 ML SYR SUBCUT SCH (10:51)
[2022-03-31] MEDS: Collagenase 250 units/gm OINT 1 tube TOPICAL SCH (10:54)
[2022-03-31] MEDS ORDERED: cefTRIAXone 1 gm/50 mL NS BAG 1 GM/50 ML BAG IVPB SCH (11:00)
[2022-03-31 15:52] LABS: Hematocrit 24 % (35-47); Hemoglobin 7.7 g/dL (12.0-16.0); Mean Corpuscular HGB Conc 32 g/dL (31-36); Mean Corpuscular Hemoglobin 27 pg (27-31); Mean Corpuscular Volume 85 fL (80-97); Mean Platelet Volume 8.1 fL (7.4-10.4); Platelet Count 824 10^3/uL (150-450); Red Blood Count 2.81 10^6 /uL (3.70-4.87); Red Cell Distribution Width 19 % (10-15); White Blood Count 12.6 10^3/uL (3.5-10.8)
[2022-03-31] MEDS: Acetaminophen IV 1 GM/100ML 100 ML IV PRN (16:15)
[2022-03-31 16:17] LABS: Calcium 7.4 mg/dL (8.6-10.3); Magnesium 2.7 mg/dL (1.9-2.7); Potassium 3.4 mmol/L (3.5-5.0)
[2022-03-31 16:23] LABS: eGFR CKD-EPI 91.3 (>60)
[2022-03-31 16:59] LABS: High Sensitivity Troponin 1 Hr 15 pg/mL (<15)
[2022-03-31] MEDS ORDERED: Piperacillin/Tazobac ADVAN 3.375 GM in NS 0.9% 100 ml BAG 100 ML IV ONE (17:02)
[2022-03-31] MEDS ORDERED: Iohexol 350 (CONTRAST) 500 ML MDV IV ONE (17:10)
[2022-03-31 17:25] LABS: ABS Basophils 0.1 10^3/ul (0-0.2); ABS Eosinophils 0.3 10^3/ul (0-0.6); ABS Lymphocytes 1.7 10^3/ul (1.0-4.8); ABS Monocytes 1.5 10^3/ul (0-0.8); ABS Neutrophils 9.1 10^3/ul (1.5-7.7); Eosinophil % 2.6 %; Hypochromasia 1+; Lymphocyte % 13.3 %; Macrocytosis 1+; Microcytosis 1+; Toxic Granulation 1+
[2022-03-31] MEDS ORDERED: Zosyn per Pharmacy NOTE FOLLOW UP SCH (18:00)
[2022-03-31] MEDS: KCL 10 MEQ/50 ML IVPREMIX 10 MEQ/50 ML BAG IV SCH ×3 (18:24→21:45)
[2022-03-31] MEDS ORDERED: ZOSYN 3.375 GM Q8H per EXTENDED INFUSION IV SCH (19:30)
[2022-03-31] MEDS ORDERED: Lactated Ringers 1000 ml BAG 1,000 ML IV SCH (20:23)
[2022-03-31] MEDS ORDERED: Lactated Ringers 500 ml BAG 500 ML IV SCH (22:00)
[2022-03-31] MEDS ORDERED: NS 0.9% 100 ml BAG 100 ML ONE (22:12)
[2022-04-01] MEDS: Enoxaparin 60 MG/0.6 ML SYR SUBCUT SCH ×3 (00:21→22:25)
[2022-04-01] MEDS: NS 0.9% IVPB SCH ×2 (00:22→06:25)
[2022-04-01] MEDS: MEROPENEM IVPB SCH ×2 (00:22→06:25)
[2022-04-01 05:04] LABS: ABS Basophils 0.1 10^3/ul (0-0.2); ABS Eosinophils 0.4 10^3/ul (0-0.6); ABS Lymphocytes 1.8 10^3/ul (1.0-4.8); ABS Monocytes 1.5 10^3/ul (0-0.8); ABS Neutrophils 11.1 10^3/ul (1.5-7.7); Eosinophil % 2.9 %; Hematocrit 23 % (35-47); Hemoglobin 7.2 g/dL (12.0-16.0); Lymphocyte % 11.9 %; Mean Corpuscular HGB Conc 31 g/dL (31-36); Mean Corpuscular Hemoglobin 27 pg (27-31); Mean Corpuscular Volume 85 fL (80-97); Mean Platelet Volume 8.4 fL (7.4-10.4); Platelet Count 794 10^3/uL (150-450); Red Blood Count 2.69 10^6 /uL (3.70-4.87); Red Cell Distribution Width 19 % (10-15); White Blood Count 14.9 10^3/uL (3.5-10.8)
[2022-04-01] MEDS ORDERED: Vancomycin Trough Check NOTE FOLLOW UP ONE ×2 (05:30→13:30)
[2022-04-01 05:34] LABS: Albumin 1.7 g/dL (3.2-5.2); Albumin/Globulin Ratio 0.7 (1-3); C Reactive Protein 236.52 mg/L (<8.01); Calcium 7.1 mg/dL (8.6-10.3); Globulin 2.5 g/dL (2-4); Magnesium 2.1 mg/dL (1.9-2.7); Potassium 4.7 mmol/L (3.5-5.0); Total Bilirubin 0.3 mg/dL (0.2-1.0); Total Protein 4.2 g/dL (6.4-8.9); Vancomycin Trough 14.8 mcg/mL; eGFR CKD-EPI 92.7 (>60)
[2022-04-01] MEDS: Thiamine 100 MG/ML 2 ml VIAL 200 MG in NS 0.9% 100 ml BAG 100 ML IV SCH ×3 (06:25→22:27)
[2022-04-01] MEDS: Vancomycin 500 MG in NS 0.9% 250 ML IVPB SCH (06:45)
[2022-04-01] MEDS: Pantoprazole VIAL 40 MG VIAL IV SCH (09:22)
[2022-04-01] MEDS: Multivitamins/Minerals TAB PO SCH (09:23)
[2022-04-01] MEDS ORDERED: Lactated Ringers 1000 ml BAG 1,000 ML IV ONE (09:40)
[2022-04-01] MEDS ORDERED: Lactated Ringers 1000 ml BAG 1,000 ML IV SCH (10:00)
[2022-04-01] MEDS ORDERED: Morphine 2 MG/ML SYRINGE IV ONE (11:15)
[2022-04-01] MEDS: Fluconazole 400 MG IVPREMIX 400 MG/200 ML BAG IVPB SCH (11:29)
[2022-04-01] MEDS: Collagenase 250 units/gm OINT 1 tube TOPICAL SCH (12:33)
[2022-04-01 14:00] LABS: Urine Color Yellow
[2022-04-01 14:01] LABS: Urine Appearance Clear; Urine Bilirubin Negative (Negative); Urine Blood 3+ (Large) (Negative); Urine Glucose Negative (Negative); Urine Ketones Negative (Negative); Urine Nitrite Negative (Negative); Urine Protein 1+ (30 mg/dL) (Negative); Urine Urobilinogen 0.2 (Negative) (Negative); Urine pH 5.5 (5.0-9.0)
[2022-04-01 14:23] LABS: Urine Bacteria 1+ (Absent); Urine Red Blood Cell 3+(>10/hpf) (Absent); Urine Squamous Epithelial Cell Present (Absent); Urine White Blood Cell 3+(>20/hpf) (Absent); Urine Yeast Present (Absent)
[2022-04-02] MEDS: Thiamine 100 MG/ML 2 ml VIAL 200 MG in NS 0.9% 100 ml BAG 100 ML IV SCH ×3 (05:45→21:03)
[2022-04-02 08:16] LABS: ABS Basophils 0.1 10^3/ul (0-0.2); ABS Eosinophils 0.4 10^3/ul (0-0.6); ABS Monocytes 1.5 10^3/ul (0-0.8); ABS Neutrophils 10.6 10^3/ul (1.5-7.7); Eosinophil % 2.6 %; Hematocrit 21 % (35-47); Hemoglobin 6.6 g/dL (12.0-16.0); Lymphocyte % 13.7 %; Mean Corpuscular HGB Conc 31 g/dL (31-36); Mean Corpuscular Hemoglobin 27 pg (27-31); Mean Corpuscular Volume 86 fL (80-97); Mean Platelet Volume 8.4 fL (7.4-10.4); Nucleated Red Blood Cells % 0.1; Platelet Count 886 10^3/uL (150-450); Red Blood Count 2.48 10^6 /uL (3.70-4.87); Red Cell Distribution Width 19 % (10-15); White Blood Count 14.5 10^3/uL (3.5-10.8)
[2022-04-02] MEDS ORDERED: Alteplase (CATHFLO) 2 MG VIAL IV ONE (08:28)
[2022-04-02 08:35] LABS: Calcium 7.1 mg/dL (8.6-10.3); Magnesium 1.6 mg/dL (1.9-2.7); Potassium 4.1 mmol/L (3.5-5.0)
[2022-04-02 08:41] LABS: C Reactive Protein 196.28 mg/L (<8.01); eGFR CKD-EPI 94.9 (>60)
[2022-04-02] MEDS ORDERED: Magnesium Sulfate 2 gm BAG 2 GM/50 ML BAG IVPB ONE (08:44)
[2022-04-02] MEDS: Multivitamins/Minerals TAB PO SCH (09:23)
[2022-04-02] MEDS: Pantoprazole VIAL 40 MG VIAL IV SCH ×2 (09:23→21:02)
[2022-04-02] MEDS: Enoxaparin 60 MG/0.6 ML SYR SUBCUT SCH (09:57)
[2022-04-02] MEDS: Fluconazole 400 MG IVPREMIX 400 MG/200 ML BAG IVPB SCH (10:55)
[2022-04-02] MEDS: Acetaminophen IV 1 GM/100ML 100 ML IV PRN (12:59)
[2022-04-02] MEDS: Collagenase 250 units/gm OINT 1 tube TOPICAL SCH (13:35)
[2022-04-02] MEDS ORDERED: Albumin Human 25% 25 GM/100 ML BTL IV SCH (15:00)
[2022-04-02 16:21] LABS: Hematocrit 25 % (35-47); Hemoglobin 7.7 g/dL (12.0-16.0); Mean Corpuscular HGB Conc 31 g/dL (31-36); Mean Corpuscular Hemoglobin 26 pg (27-31); Mean Corpuscular Volume 86 fL (80-97); Mean Platelet Volume 7.8 fL (7.4-10.4); Platelet Count 894 10^3/uL (150-450); Red Blood Count 2.95 10^6 /uL (3.70-4.87); Red Cell Distribution Width 18 % (10-15); White Blood Count 14.2 10^3/uL (3.5-10.8)
[2022-04-02 16:36] LABS: ABS Basophils 0.1 10^3/ul (0-0.2); ABS Eosinophils 0.4 10^3/ul (0-0.6); ABS Lymphocytes 2.1 10^3/ul (1.0-4.8); ABS Monocytes 1.4 10^3/ul (0-0.8); ABS Neutrophils 10.2 10^3/ul (1.5-7.7); Eosinophil % 2.9 %; Lymphocyte % 14.5 %; Nucleated Red Blood Cells % 0.1
[2022-04-02 16:45] LABS: Magnesium 2.1 mg/dL (1.9-2.7); Phosphorus 2.7 mg/dL (2.5-5.0); Potassium 4.2 mmol/L (3.5-5.0); eGFR CKD-EPI 96.1 (>60)
[2022-04-02] MEDS: Albumin Human 25% 25 GM/100 ML BTL IV SCH (18:25)
[2022-04-02] MEDS: Enoxaparin 40 MG/0.4 ML SYR SUBCUT SCH (21:25)
[2022-04-03] MEDS: Albumin Human 25% 25 GM/100 ML BTL IV SCH ×3 (01:53→17:14)
[2022-04-03] MEDS: Albuterol/Ipratropium NEB.SOL (2.5/0.5 MG) 3 ML NEB.SOLN INH PRN (02:34)
[2022-04-03 05:48] LABS: Hematocrit 24 % (35-47); Hemoglobin 7.9 g/dL (12.0-16.0); Mean Corpuscular HGB Conc 32 g/dL (31-36); Mean Corpuscular Hemoglobin 28 pg (27-31); Mean Corpuscular Volume 86 fL (80-97); Mean Platelet Volume 8.3 fL (7.4-10.4); Platelet Count 877 10^3/uL (150-450); Red Blood Count 2.84 10^6 /uL (3.70-4.87); Red Cell Distribution Width 19 % (10-15); White Blood Count 15.4 10^3/uL (3.5-10.8)
[2022-04-03] MEDS: Thiamine 100 MG/ML 2 ml VIAL 200 MG in NS 0.9% 100 ml BAG 100 ML IV SCH ×3 (05:49→23:30)
[2022-04-03 05:51] LABS: ABS Basophils 0.1 10^3/ul (0-0.2); ABS Eosinophils 0.4 10^3/ul (0-0.6); ABS Monocytes 1.4 10^3/ul (0-0.8); ABS Neutrophils 11.5 10^3/ul (1.5-7.7); Eosinophil % 2.9 %; Lymphocyte % 12.7 %
[2022-04-03] MEDS ORDERED: Vancomycin Trough Check NOTE FOLLOW UP ONE (06:00)
[2022-04-03 06:21] LABS: Albumin 2.7 g/dL (3.2-5.2); Albumin/Globulin Ratio 1.2 (1-3); Calcium 7.4 mg/dL (8.6-10.3); Globulin 2.2 g/dL (2-4); Magnesium 1.8 mg/dL (1.9-2.7); Phosphorus 2.6 mg/dL (2.5-5.0); Total Bilirubin 0.4 mg/dL (0.2-1.0); Total Protein 4.9 g/dL (6.4-8.9)
[2022-04-03 06:22] LABS: Potassium 5.3 mmol/L (3.5-5.0)
[2022-04-03] MEDS ORDERED: CALCIUM GLUCONATE 1GM/50ML NS 1 GM/50 ML BAG IV ONE (07:10)
[2022-04-03] MEDS ORDERED: Magnesium Sulfate 2 gm BAG 2 GM/50 ML BAG IVPB ONE (07:10)
[2022-04-03] MEDS: Acetaminophen IV 1 GM/100ML 100 ML IV PRN (08:01)
[2022-04-03] MEDS: Pantoprazole VIAL 40 MG VIAL IV SCH ×2 (08:39→23:18)
[2022-04-03] MEDS: Enoxaparin 40 MG/0.4 ML SYR SUBCUT SCH (08:39)
[2022-04-03] MEDS: Multivitamins/Minerals TAB PO SCH ×2 (08:42→08:52)
[2022-04-03] MEDS: Collagenase 250 units/gm OINT 1 tube TOPICAL SCH (12:02)
[2022-04-03] MEDS: Fluconazole 400 MG IVPREMIX 400 MG/200 ML BAG IVPB SCH (12:02)
[2022-04-03 13:04] LABS: Hematocrit 24 % (35-47); Hemoglobin 7.5 g/dL (12.0-16.0); Mean Corpuscular HGB Conc 31 g/dL (31-36); Mean Corpuscular Hemoglobin 27 pg (27-31); Mean Corpuscular Volume 86 fL (80-97); Mean Platelet Volume 7.9 fL (7.4-10.4); Platelet Count 884 10^3/uL (150-450); Red Blood Count 2.78 10^6 /uL (3.70-4.87); Red Cell Distribution Width 19 % (10-15); White Blood Count 14.3 10^3/uL (3.5-10.8)
[2022-04-03 13:55] LABS: Urine Bacteria Absent (Absent); Urine Red Blood Cell 3+(>10/hpf) (Absent); Urine White Blood Cell 3+(>20/hpf) (Absent)
[2022-04-03 14:00] LABS: Urine Appearance Slightly Cloudy; Urine Color Yellow; Urine Ketones Negative (Negative); Urine Specific Gravity 1.015 (1.005-1.030); Urine Urobilinogen 0.2 (Negative) (Negative); Urine pH 5.5 (5.0-9.0)
[2022-04-03 14:01] LABS: Urine Bilirubin Negative (Negative); Urine Blood 3+ (Large) (Negative); Urine Glucose Negative (Negative); Urine Nitrite Negative (Negative); Urine Protein 2+ (100 mg/dL) (Negative)
[2022-04-03 14:12] LABS: ABS Basophils 0.2 10^3/ul (0-0.2); ABS Eosinophils 0.4 10^3/ul (0-0.6); ABS Lymphocytes 2.1 10^3/ul (1.0-4.8); ABS Monocytes 1.4 10^3/ul (0-0.8); ABS Neutrophils 10.3 10^3/ul (1.5-7.7); Eosinophil % 3.1 %; Lymphocyte % 14.4 %
[2022-04-03 14:16] LABS: Anisocytosis 2+; Hypochromasia 2+
[2022-04-03 14:29] LABS: Calcium 7.8 mg/dL (8.6-10.3); Magnesium 2.5 mg/dL (1.9-2.7); Phosphorus 2.4 mg/dL (2.5-5.0); Potassium 4.9 mmol/L (3.5-5.0); eGFR CKD-EPI 96.1 (>60)
[2022-04-03] MEDS ORDERED: Furosemide 20 mg/2 ml IV VIAL IV ONE (15:46)
[2022-04-03] MEDS ORDERED: Potassium & Sodium Phos 250 mg = 1 PACKET NG TUBE ONE (15:47)
[2022-04-03] MEDS: Budesonide NEB 0.25 MG/2 ML NEB.SOLN INH SCH (19:36)
[2022-04-03] MEDS ORDERED: Thiamine 100 MG/ML 2 ml VIAL (200 mg) ONE (23:08)
[2022-04-03] MEDS: Enoxaparin 60 MG/0.6 ML SYR SUBCUT SCH (23:20)
[2022-04-04] MEDS: Albumin Human 25% 25 GM/100 ML BTL IV SCH ×2 (02:34→09:44)
[2022-04-04] MEDS: Thiamine 100 MG/ML 2 ml VIAL 200 MG in NS 0.9% 100 ml BAG 100 ML IV SCH ×2 (05:24→14:37)
[2022-04-04 05:55] LABS: Hematocrit 25 % (35-47); Hemoglobin 8.3 g/dL (12.0-16.0); Mean Corpuscular HGB Conc 33 g/dL (31-36); Mean Corpuscular Hemoglobin 28 pg (27-31); Mean Corpuscular Volume 85 fL (80-97); Mean Platelet Volume 8.3 fL (7.4-10.4); Platelet Count 928 10^3/uL (150-450); Red Blood Count 2.95 10^6 /uL (3.70-4.87); Red Cell Distribution Width 19 % (10-15); White Blood Count 12.9 10^3/uL (3.5-10.8)
[2022-04-04 06:07] LABS: Calcium 8.2 mg/dL (8.6-10.3); Magnesium 1.9 mg/dL (1.9-2.7); eGFR CKD-EPI 95.3 (>60)
[2022-04-04 06:12] LABS: Potassium 5.2 mmol/L (3.5-5.0)
[2022-04-04 06:29] LABS: ABS Basophils 0.1 10^3/ul (0-0.2); ABS Eosinophils 0.6 10^3/ul (0-0.6); ABS Lymphocytes 2.1 10^3/ul (1.0-4.8); ABS Monocytes 1.1 10^3/ul (0-0.8); ABS Neutrophils 9.1 10^3/ul (1.5-7.7); Eosinophil % 4.5 %; Lymphocyte % 15.9 %; Nucleated Red Blood Cells % 0.1
[2022-04-04] MEDS: Budesonide NEB 0.25 MG/2 ML NEB.SOLN INH SCH ×3 (08:03→19:41)
[2022-04-04] MEDS: Pantoprazole VIAL 40 MG VIAL IV SCH ×2 (09:31→20:29)
[2022-04-04] MEDS: Enoxaparin 60 MG/0.6 ML SYR SUBCUT SCH ×2 (09:39→19:40)
[2022-04-04] MEDS: Multivitamins/Minerals TAB PO SCH (12:07)
[2022-04-04] MEDS: Fluconazole 400 MG IVPREMIX 400 MG/200 ML BAG IVPB SCH (12:35)
[2022-04-04] MEDS: Albuterol/Ipratropium NEB.SOL (2.5/0.5 MG) 3 ML NEB.SOLN INH PRN (14:11)
[2022-04-04] MEDS ORDERED: Furosemide 20 mg/2 ml IV VIAL IV ONE ×2 (14:13→18:00)
[2022-04-04] MEDS: Multivitamins ADULT w/MIN LIQ 15 ML UDC PO SCH (14:33)
[2022-04-04] MEDS: Collagenase 250 units/gm OINT 1 tube TOPICAL SCH (16:10)
[2022-04-04] MEDS: Morphine 2 MG/ML SYRINGE IV PRN ×2 (17:14→21:50)
[2022-04-04] MEDS: Acetaminophen IV 1 GM/100ML 100 ML IV PRN (19:41)
[2022-04-05] MEDS: Morphine 2 MG/ML SYRINGE IV PRN ×2 (02:01→06:14)
[2022-04-05 04:43] LABS: Hematocrit 25 % (35-47); Hemoglobin 7.9 g/dL (12.0-16.0); Mean Corpuscular HGB Conc 32 g/dL (31-36); Mean Corpuscular Hemoglobin 28 pg (27-31); Mean Corpuscular Volume 87 fL (80-97); Mean Platelet Volume 7.9 fL (7.4-10.4); Platelet Count 1000 10^3/uL (150-450); Red Blood Count 2.87 10^6 /uL (3.70-4.87); Red Cell Distribution Width 19 % (10-15); White Blood Count 13.8 10^3/uL (3.5-10.8)
[2022-04-05 05:16] LABS: Albumin 2.8 g/dL (3.2-5.2); Albumin/Globulin Ratio 1.3 (1-3); Calcium 8.3 mg/dL (8.6-10.3); Direct Bilirubin 0.2 mg/dL (0.03-0.18); Globulin 2.1 g/dL (2-4); Indirect Bilirubin 0.3 mg/dL (0.3-1.0); Magnesium 1.4 mg/dL (1.9-2.7); Phosphorus 2.9 mg/dL (2.5-5.0); Total Bilirubin 0.5 mg/dL (0.2-1.0); Total Protein 4.9 g/dL (6.4-8.9); eGFR CKD-EPI 96.6 (>60)
[2022-04-05 05:17] LABS: Potassium 5.1 mmol/L (3.5-5.0)
[2022-04-05 05:24] LABS: Polychromasia 1+
[2022-04-05] MEDS: Budesonide NEB 0.25 MG/2 ML NEB.SOLN INH SCH ×2 (07:24→19:24)
[2022-04-05] MEDS ORDERED: Magnesium Sulfate IV 3 GM in NS 0.9% 100 ml BAG 100 ML IVPB ONE (07:25)
[2022-04-05] MEDS ORDERED: Magnesium Sulfate 2 GM IV (Premix) IVPB ONE (08:00)
[2022-04-05] MEDS: Enoxaparin 60 MG/0.6 ML SYR SUBCUT SCH ×2 (08:08→20:58)
[2022-04-05] MEDS: Multivitamins ADULT w/MIN LIQ 15 ML UDC PO SCH (08:09)
[2022-04-05] MEDS: Pantoprazole VIAL 40 MG VIAL IV SCH ×2 (08:09→21:24)
[2022-04-05] MEDS: Collagenase 250 units/gm OINT 1 tube TOPICAL SCH (08:10)
[2022-04-05] MEDS ORDERED: Magnesium Sulfate 1 GM IV 1 GM/100 ML BAG IV ONE (09:00)
[2022-04-05] MEDS ORDERED: Furosemide 20 mg/2 ml IV VIAL IV ONE (09:32)
[2022-04-05] MEDS: Fluconazole 400 MG IVPREMIX 400 MG/200 ML BAG IVPB SCH (11:10)
[2022-04-05] MEDS ORDERED: Iohexol 350 (CONTRAST) 500 ML MDV IV ONE (13:29)
[2022-04-05] MEDS: Acetaminophen IV 1 GM/100ML 100 ML IV PRN (13:32)
[2022-04-05] MEDS: Cefepime 1 GM in Dextrose 1 GM/50 ML BAG IV SCH (13:49)
[2022-04-05 14:04] LABS: Hematocrit 25 % (35-47); Hemoglobin 7.9 g/dL (12.0-16.0); Mean Corpuscular HGB Conc 32 g/dL (31-36); Mean Corpuscular Hemoglobin 27 pg (27-31); Mean Corpuscular Volume 85 fL (80-97); Platelet Count 1018 10^3/uL (150-450); Red Blood Count 2.94 10^6 /uL (3.70-4.87); Red Cell Distribution Width 19 % (10-15); White Blood Count 15.8 10^3/uL (3.5-10.8)
[2022-04-05 14:39] LABS: Calcium 8.4 mg/dL (8.6-10.3); Potassium 4.7 mmol/L (3.5-5.0); eGFR CKD-EPI 93.8 (>60)
[2022-04-05 14:48] LABS: Polychromasia 2+
[2022-04-05] MEDS: metroNIDAZOLE IV 500 MG/100ML 500 MG/100 ML BAG IVPB SCH ×2 (15:26→23:35)
[2022-04-05] MEDS ORDERED: Alteplase (CATHFLO) 2 MG VIAL IV ONE (17:06)
[2022-04-06] MEDS: Cefepime 1 GM in Dextrose 1 GM/50 ML BAG IV SCH ×2 (02:10→13:50)
[2022-04-06 04:03] LABS: Hematocrit 26 % (35-47); Hemoglobin 8.5 g/dL (12.0-16.0); Mean Corpuscular HGB Conc 33 g/dL (31-36); Mean Corpuscular Hemoglobin 28 pg (27-31); Mean Corpuscular Volume 85 fL (80-97); Mean Platelet Volume 8.2 fL (7.4-10.4); Platelet Count 1027 10^3/uL (150-450); Red Blood Count 3.07 10^6 /uL (3.70-4.87); Red Cell Distribution Width 19 % (10-15); White Blood Count 15.7 10^3/uL (3.5-10.8)
[2022-04-06 04:18] LABS: Calcium 8.1 mg/dL (8.6-10.3); Magnesium 1.6 mg/dL (1.9-2.7); Potassium 4.3 mmol/L (3.5-5.0); eGFR CKD-EPI 94.5 (>60)
[2022-04-06] MEDS ORDERED: Magnesium Sulfate 2 gm BAG 2 GM/50 ML BAG IVPB ONE ×2 (04:20→07:36)
[2022-04-06 05:21] LABS: Anisocytosis 1+; Polychromasia 1+
[2022-04-06 05:22] LABS: ABS Lymphocytes 7.9 10^3/ul (1.0-4.8); ABS Neutrophils 2.8 10^3/ul (1.5-7.7)
[2022-04-06 05:23] LABS: ABS Basophils 1.6 10^3/ul (0-0.2); ABS Eosinophils 1.9 10^3/ul (0-0.6)
[2022-04-06] MEDS: metroNIDAZOLE IV 500 MG/100ML 500 MG/100 ML BAG IVPB SCH ×3 (06:34→21:02)
[2022-04-06] MEDS ORDERED: Thiamine 100 MG/ML 2 ml VIAL 250 MG in NS 0.9% 100 ml BAG 100 ML IV SCH (08:00)
[2022-04-06] MEDS: Budesonide NEB 0.25 MG/2 ML NEB.SOLN INH SCH ×2 (08:50→19:13)
[2022-04-06] MEDS: Enoxaparin 60 MG/0.6 ML SYR SUBCUT SCH ×2 (10:03→21:02)
[2022-04-06] MEDS: Pantoprazole VIAL 40 MG VIAL IV SCH ×2 (10:04→21:02)
[2022-04-06] MEDS: Multivitamins ADULT w/MIN LIQ 15 ML UDC PO SCH (10:04)
[2022-04-06] MEDS: Fluconazole 400 MG IVPREMIX 400 MG/200 ML BAG IVPB SCH (10:06)
[2022-04-06] MEDS: Acetaminophen IV 1 GM/100ML 100 ML IV PRN (12:42)
[2022-04-06] MEDS: Collagenase 250 units/gm OINT 1 tube TOPICAL SCH (12:42)
[2022-04-06 13:39] LABS: C Reactive Protein 188.59 mg/L (<8.01)
[2022-04-06 13:40] LABS: C Reactive Protein 146.95 mg/L (<8.01)
[2022-04-07] MEDS: Cefepime 1 GM in Dextrose 1 GM/50 ML BAG IV SCH ×2 (01:08→12:58)
[2022-04-07 04:36] LABS: Hematocrit 25 % (35-47); Hemoglobin 7.9 g/dL (12.0-16.0); Mean Corpuscular HGB Conc 32 g/dL (31-36); Mean Corpuscular Hemoglobin 27 pg (27-31); Mean Corpuscular Volume 85 fL (80-97); Mean Platelet Volume 7.8 fL (7.4-10.4); Platelet Count 937 10^3/uL (150-450); Red Blood Count 2.92 10^6 /uL (3.70-4.87); Red Cell Distribution Width 19 % (10-15); White Blood Count 16.9 10^3/uL (3.5-10.8)
[2022-04-07] MEDS: metroNIDAZOLE IV 500 MG/100ML 500 MG/100 ML BAG IVPB SCH ×3 (05:11→22:00)
[2022-04-07 05:13] LABS: Albumin 2.3 g/dL (3.2-5.2); Globulin 2.2 g/dL (2-4); Magnesium 1.9 mg/dL (1.9-2.7); Phosphorus 4.1 mg/dL (2.5-5.0); Potassium 4.1 mmol/L (3.5-5.0); Total Bilirubin 0.3 mg/dL (0.2-1.0); Total Protein 4.5 g/dL (6.4-8.9); eGFR CKD-EPI 94.9 (>60)
[2022-04-07 05:44] LABS: Anisocytosis 1+
[2022-04-07 05:45] LABS: ABS Eosinophils 2.4 10^3/ul (0-0.6); ABS Lymphocytes 7.1 10^3/ul (1.0-4.8); ABS Neutrophils 3.4 10^3/ul (1.5-7.7)
[2022-04-07 05:46] LABS: ABS Basophils 1.4 10^3/ul (0-0.2)
[2022-04-07] MEDS: Multivitamins ADULT w/MIN LIQ 15 ML UDC PO SCH (07:23)
[2022-04-07] MEDS: Pantoprazole VIAL 40 MG VIAL IV SCH ×2 (07:23→22:00)
[2022-04-07] MEDS: Enoxaparin 60 MG/0.6 ML SYR SUBCUT SCH (07:24)
[2022-04-07] MEDS: Budesonide NEB 0.25 MG/2 ML NEB.SOLN INH SCH ×2 (07:33→19:10)
[2022-04-07] MEDS: Acetaminophen IV 1 GM/100ML 100 ML IV PRN (10:14)
[2022-04-07] MEDS: Collagenase 250 units/gm OINT 1 tube TOPICAL SCH (10:47)
[2022-04-07] MEDS: Fluconazole 400 MG IVPREMIX 400 MG/200 ML BAG IVPB SCH (10:47)
[2022-04-07 13:06] LABS: Ferritin 225.6 ng/mL (11-307)
[2022-04-07 15:14] LABS: Urine Creatinine Concentration 48.12 mg/dL
[2022-04-08] MEDS ORDERED: Lactated Ringers 1000 ml BAG 1,000 ML IV SCH ×2 (00:30→15:00)
[2022-04-08] MEDS: Cefepime 1 GM in Dextrose 1 GM/50 ML BAG IV SCH ×2 (01:14→13:01)
[2022-04-08] MEDS: metroNIDAZOLE IV 500 MG/100ML 500 MG/100 ML BAG IVPB SCH ×3 (05:06→22:01)
[2022-04-08 05:20] LABS: Hematocrit 25 % (35-47); Hemoglobin 8.1 g/dL (12.0-16.0); Mean Corpuscular HGB Conc 32 g/dL (31-36); Mean Corpuscular Hemoglobin 27 pg (27-31); Mean Corpuscular Volume 85 fL (80-97); Mean Platelet Volume 7.8 fL (7.4-10.4); Platelet Count 992 10^3/uL (150-450); Red Blood Count 2.98 10^6 /uL (3.70-4.87); Red Cell Distribution Width 19 % (10-15); White Blood Count 19.6 10^3/uL (3.5-10.8)
[2022-04-08 05:52] LABS: Magnesium 1.4 mg/dL (1.9-2.7); Phosphorus 4.1 mg/dL (2.5-5.0); Potassium 3.8 mmol/L (3.5-5.0); eGFR CKD-EPI 96.1 (>60)
[2022-04-08] MEDS: Budesonide NEB 0.25 MG/2 ML NEB.SOLN INH SCH ×2 (06:54→19:35)
[2022-04-08] MEDS: Acetaminophen IV 1 GM/100ML 100 ML IV PRN (07:48)
[2022-04-08] MEDS ORDERED: Magnesium Sulf 4 GM/100 ML IV 4,000 MG/100 ML BAG IVPB ONE (08:21)
[2022-04-08] MEDS: Multivitamins ADULT w/MIN LIQ 15 ML UDC PO SCH (08:34)
[2022-04-08] MEDS: Collagenase 250 units/gm OINT 1 tube TOPICAL SCH (08:34)
[2022-04-08] MEDS: Pantoprazole VIAL 40 MG VIAL IV SCH (09:16)
[2022-04-08 09:20] LABS: Anisocytosis 2+
[2022-04-08 09:22] LABS: ABS Basophils 0.4 10^3/ul (0-0.2); ABS Eosinophils 1.8 10^3/ul (0-0.6); ABS Lymphocytes 5.3 10^3/ul (1.0-4.8); ABS Neutrophils 7.8 10^3/ul (1.5-7.7)
[2022-04-08] MEDS: Fluconazole 400 MG IVPREMIX 400 MG/200 ML BAG IVPB SCH (11:07)
[2022-04-08 12:43] LABS: Urine Osmo 460 mOsm/kg (150-1150)
[2022-04-08 13:27] LABS: Coagulation F VIII Activity 145 % (55 - 200); von Willebrand Factor Activity 193 % (55 - 200)
[2022-04-08] MEDS ORDERED: Buffered Lidocaine 1% SYRIN 1 ml INTRADERM ONE (14:35)
[2022-04-08] MEDS ORDERED: Iohexol 180 (CONTRAST) 20 ML SDV IV ONE (17:03)
[2022-04-08] MEDS ORDERED: Lidocaine 2% PF 5 ML VIAL ONE (17:08)
[2022-04-08] MEDS ORDERED: Midazolam 2 mg/2 ml VIAL 1 mg/ml 2 ml VIAL (2 mg) ONE (17:08)
[2022-04-08] MEDS ORDERED: fentaNYL 100 mcg/2 ml 50 MCG/ML VIAL ONE (17:08)
[2022-04-08] MEDS ORDERED: Propofol 10 MG/ML 20 ML BTL ONE (17:08)
[2022-04-08] MEDS ORDERED: Prochlorperazine 5 mg/ml 2 ml VIAL (10 mg) IV PRN (18:10)
[2022-04-08] MEDS ORDERED: Naloxone 0.4 mg VIAL 0.4 mg/ml 1 ml VIAL IV PRN (18:10)
[2022-04-08] MEDS ORDERED: fentaNYL 100 mcg/2 ml 50 MCG/ML VIAL IV PRN (18:10)
[2022-04-08] MEDS ORDERED: Phenylephrine 40 mcg/mL 10mL (400mcg) SYRINGE ONE ×2 (18:25→18:58)
[2022-04-09] MEDS: Cefepime 1 GM in Dextrose 1 GM/50 ML BAG IV SCH ×2 (01:35→14:59)
[2022-04-09] MEDS: metroNIDAZOLE IV 500 MG/100ML 500 MG/100 ML BAG IVPB SCH ×3 (05:17→22:31)
[2022-04-09 05:39] LABS: Hematocrit 24 % (35-47); Hemoglobin 7.6 g/dL (12.0-16.0); Mean Corpuscular HGB Conc 32 g/dL (31-36); Mean Corpuscular Hemoglobin 27 pg (27-31); Mean Corpuscular Volume 85 fL (80-97); Mean Platelet Volume 7.6 fL (7.4-10.4); Platelet Count 894 10^3/uL (150-450); Red Blood Count 2.84 10^6 /uL (3.70-4.87); Red Cell Distribution Width 19 % (10-15); White Blood Count 17.2 10^3/uL (3.5-10.8)
[2022-04-09 06:17] LABS: Calcium 7.8 mg/dL (8.6-10.3); Magnesium 1.8 mg/dL (1.9-2.7); Potassium 3.9 mmol/L (3.5-5.0); eGFR CKD-EPI 103.8 (>60)
[2022-04-09] MEDS: Budesonide NEB 0.25 MG/2 ML NEB.SOLN INH SCH ×2 (07:01→19:18)
[2022-04-09] MEDS ORDERED: Magnesium Sulfate 2 gm BAG 2 GM/50 ML BAG IVPB ONE (07:34)
[2022-04-09 08:01] LABS: Anisocytosis 2+; Microcytosis 1+
[2022-04-09 08:07] LABS: ABS Eosinophils 0.7 10^3/ul (0-0.6); ABS Lymphocytes 6.5 10^3/ul (1.0-4.8)
[2022-04-09] MEDS: Multivitamins ADULT w/MIN LIQ 15 ML UDC PO SCH (08:31)
[2022-04-09] MEDS: Collagenase 250 units/gm OINT 1 tube TOPICAL SCH (08:56)
[2022-04-09] MEDS: Fluconazole 400 MG IVPREMIX 400 MG/200 ML BAG IVPB SCH (10:45)
[2022-04-09] MEDS: Acetaminophen IV 1 GM/100ML 100 ML IV PRN (20:00)
[2022-04-09] MEDS ORDERED: Enoxaparin 60 MG/0.6 ML SYR SUBCUT SCH (21:00)
[2022-04-09] MEDS ORDERED: Enoxaparin 60 MG/0.6 ML SYR SUBCUT ONE (22:30)
[2022-04-10] MEDS: Cefepime 1 GM in Dextrose 1 GM/50 ML BAG IV SCH (02:18)
[2022-04-10] MEDS: metroNIDAZOLE IV 500 MG/100ML 500 MG/100 ML BAG IVPB SCH (05:27)
[2022-04-10 05:33] LABS: Hematocrit 23 % (35-47); Hemoglobin 7.3 g/dL (12.0-16.0); Mean Corpuscular HGB Conc 32 g/dL (31-36); Mean Corpuscular Hemoglobin 27 pg (27-31); Mean Corpuscular Volume 86 fL (80-97); Mean Platelet Volume 7.5 fL (7.4-10.4); Platelet Count 715 10^3/uL (150-450); Red Blood Count 2.67 10^6 /uL (3.70-4.87); Red Cell Distribution Width 19 % (10-15); White Blood Count 16.7 10^3/uL (3.5-10.8)
[2022-04-10 06:23] LABS: Calcium 7.9 mg/dL (8.6-10.3); Magnesium 1.9 mg/dL (1.9-2.7); eGFR CKD-EPI 98.8 (>60)
[2022-04-10 06:43] LABS: Thyroid Peroxidase Antibodies 0.72 IU/mL (<9)
[2022-04-10 06:56] LABS: Thyroglobulin Antibody II 0.2 IU/mL (<4.0)
[2022-04-10] MEDS: Budesonide NEB 0.25 MG/2 ML NEB.SOLN INH SCH ×2 (07:02→19:43)
[2022-04-10 08:16] LABS: ABS Basophils 0.2 10^3/ul (0-0.2); ABS Eosinophils 0.7 10^3/ul (0-0.6); ABS Lymphocytes 2.5 10^3/ul (1.0-4.8); ABS Neutrophils 11.3 10^3/ul (1.5-7.7); Eosinophil % 4.2 %; Lymphocyte % 14.9 %; Nucleated Red Blood Cells % 0.1; RBC Morphology Normal (Normal)
[2022-04-10] MEDS: Multivitamins ADULT w/MIN LIQ 15 ML UDC PO SCH (09:22)
[2022-04-10] MEDS ORDERED: Iohexol 350 (CONTRAST) 500 ML MDV IV ONE ×2 (10:05→12:40)
[2022-04-10 10:24] LABS: C Reactive Protein 151.71 mg/L (<8.01)
[2022-04-10] MEDS: cefTRIAXone 1 gm/50 mL D5W 1 GM/50 ML BAG IV SCH (15:06)
[2022-04-10] MEDS: Fluconazole 400 MG IVPREMIX 400 MG/200 ML BAG IVPB SCH ×2 (15:29→15:37)
[2022-04-10] MEDS: Collagenase 250 units/gm OINT 1 tube TOPICAL SCH (15:29)
[2022-04-10 16:05] LABS: Body Fluid WBC 139 /mcL
[2022-04-10 16:21] LABS: Body Fluid Appearance Clear; Body Fluid Source Pleural Fluid
[2022-04-10 16:22] LABS: Body Fluid Color Yellow
[2022-04-10 16:26] LABS: Body Fluid Mono 11 %; Body Fluid Total Cells Counted 200
[2022-04-10] MEDS: Enoxaparin 60 MG/0.6 ML SYR SUBCUT SCH (21:56)
[2022-04-11 06:22] LABS: Hematocrit 25 % (35-47); Hemoglobin 7.9 g/dL (12.0-16.0); Mean Corpuscular HGB Conc 32 g/dL (31-36); Mean Corpuscular Hemoglobin 27 pg (27-31); Mean Corpuscular Volume 85 fL (80-97); Mean Platelet Volume 7.6 fL (7.4-10.4); Platelet Count 829 10^3/uL (150-450); Red Blood Count 2.92 10^6 /uL (3.70-4.87); Red Cell Distribution Width 19 % (10-15); White Blood Count 18.6 10^3/uL (3.5-10.8)
[2022-04-11 06:50] LABS: Calcium 8.1 mg/dL (8.6-10.3); Magnesium 1.4 mg/dL (1.9-2.7); Potassium 3.9 mmol/L (3.5-5.0); eGFR CKD-EPI 100.4 (>60)
[2022-04-11] MEDS: Budesonide NEB 0.25 MG/2 ML NEB.SOLN INH SCH ×2 (07:09→19:30)
[2022-04-11] MEDS ORDERED: Magnesium Sulf 4 GM/100 ML IV 4,000 MG/100 ML BAG IVPB ONE (07:09)
[2022-04-11 07:48] LABS: Basophilic Stippling 1+; Polychromasia 2+
[2022-04-11] MEDS: Enoxaparin 60 MG/0.6 ML SYR SUBCUT SCH (11:17)
[2022-04-11] MEDS: Multivitamins ADULT w/MIN LIQ 15 ML UDC PO SCH (11:26)
[2022-04-11] MEDS: Fluconazole 400 MG IVPREMIX 400 MG/200 ML BAG IVPB SCH (12:00)
[2022-04-11] MEDS: cefTRIAXone 1 gm/50 mL D5W 1 GM/50 ML BAG IV SCH (15:55)
[2022-04-11] MEDS: Collagenase 250 units/gm OINT 1 tube TOPICAL SCH (16:45)
[2022-04-11 19:41] LABS: Hematocrit 26 % (35-47); Hemoglobin 8.1 g/dL (12.0-16.0); Mean Corpuscular HGB Conc 31 g/dL (31-36); Mean Corpuscular Hemoglobin 26 pg (27-31); Mean Corpuscular Volume 85 fL (80-97); Mean Platelet Volume 7.5 fL (7.4-10.4); Platelet Count 829 10^3/uL (150-450); Red Blood Count 3.09 10^6 /uL (3.70-4.87); Red Cell Distribution Width 20 % (10-15); White Blood Count 18.5 10^3/uL (3.5-10.8)
[2022-04-11 19:42] LABS: PCO2 Arterial 56 mmHg (35-45); PO2 Arterial 73 mmHg (80-100)
[2022-04-11] MEDS ORDERED: Iohexol 350 (CONTRAST) 500 ML MDV IV ONE (19:50)
[2022-04-11] MEDS ORDERED: Rocuronium 50 mg VIAL 10 mg/ml 5 ml VIAL (50 mg) IV ONE (19:52)
[2022-04-11] MEDS ORDERED: Etomidate 20 mg/10 ml 2 MG/ML 10 ml VIAL IV ONE (19:52)
[2022-04-11] MEDS ORDERED: Propofol 10 mg/ml 100 ML BTL 100 ML IV SCH (20:00)
[2022-04-11 20:10] LABS: Albumin 2.1 g/dL (3.2-5.2); Albumin/Globulin Ratio 0.8 (1-3); C Reactive Protein 152.32 mg/L (<8.01); Calcium 8.4 mg/dL (8.6-10.3); Globulin 2.6 g/dL (2-4); Magnesium 2.2 mg/dL (1.9-2.7); Potassium 4.1 mmol/L (3.5-5.0); Total Bilirubin 0.2 mg/dL (0.2-1.0); Total Protein 4.7 g/dL (6.4-8.9); eGFR CKD-EPI 103.8 (>60)
[2022-04-11] MEDS ORDERED: Atropine 1% (ORAL/SL) 15 ML BTL SL PRN (20:58)
[2022-04-11] MEDS ORDERED: Midazolam 2 mg/2 ml VIAL 1 mg/ml 2 ml VIAL (2 mg) IV SLOW PU PRN (20:59)
[2022-04-11] MEDS ORDERED: Norepinephrine 16MCG/ML BAGD5W 4,000 MCG/250 ML BAG IV SCH (21:00)
[2022-04-11] MEDS ORDERED: Scopolamine 1 mg/72hr PATCH TRANSDERM SCH (21:00)
[2022-04-11] MEDS ORDERED: Morphine 2 MG/ML SYRINGE IV PRN (21:00)
[2022-04-11] MEDS ORDERED: fentaNYL 100 mcg/2 ml 50 MCG/ML VIAL IV SLOW PU PRN ×2 (21:02→21:11)
[2022-04-11] MEDS ORDERED: Morphine 2 MG/ML SYRINGE IV SCH (21:06)
[2022-04-11] MEDS ORDERED: fentaNYL 100 mcg/2 ml 50 MCG/ML VIAL IV SLOW PU SCH (22:00)
[2022-04-11 22:09] VITALS: BP 51/35
[2022-04-11 23:07] LABS: Microcytosis 1+
[2022-04-11 23:08] LABS: Anisocytosis 2+
[2022-04-11 23:10] LABS: ABS Eosinophils 1.1 10^3/ul (0-0.6); ABS Lymphocytes 8.7 10^3/ul (1.0-4.8); ABS Neutrophils 4.1 10^3/ul (1.5-7.7)
[2022-04-13 12:31] LABS: Glucose, BF 90 mg/dL
[2022-04-13 12:34] LABS: Fluid Type, Protein, Total PLEURAL FLUID; Total Protein, BF 1.9 g/dL
[2022-04-13 12:35] LABS: Lactate Dehydrogenase, BF 55 U/L
[2022-04-14 09:34] LABS: ABS Basophils 0.6 10^3/ul (0-0.2); ABS Eosinophils 0.4 10^3/ul (0-0.6)
[2022-04-14 09:38] LABS: ABS Basophils 1.6 10^3/ul (0-0.2); ABS Eosinophils 2.1 10^3/ul (0-0.6); ABS Lymphocytes 8.4 10^3/ul (1.0-4.8); ABS Neutrophils 2.2 10^3/ul (1.5-7.7)
[2022-04-14 09:44] LABS: ABS Basophils 0.2 10^3/ul (0-0.2); ABS Eosinophils 1.1 10^3/ul (0-0.6); ABS Lymphocytes 11.5 10^3/ul (1.0-4.8); ABS Neutrophils 3.7 10^3/ul (1.5-7.7)
[2022-04-14 17:41] LABS: Specimen Type BLOOD
[2022-04-15 16:13] LABS: Anti-Glial/Neuronal Nuc Ab-1 A Negative titer (<1:240); Anti-Neuronal Nuclear Ab Type1 Negative titer (<1:240); Anti-Neuronal Nuclear Ab Type2 Negative titer (<1:240); Anti-Neuronal Nuclear Ab Type3 Negative titer (<1:240); CRMP-5 IgG Antibody Negative titer (<1:240); Purkinje Cell Cytoplasm Typ Tr Negative titer (<1:240); Purkinje Cell Cytoplasm Type 1 Negative titer (<1:240); Purkinje Cell Cytoplasm Type 2 Negative titer (<1:240)
== END 2022-04-11 22:01 | disposition expired | DRG 853 ==
LOC: ED 14:27 → SUATTDRO 18:14 → EDHOLD 18:14 → MEDTELE 22:39 → ICU 03-16 13:32 → SSU 03-26 12:02 → MEDTELE 04-10 15:09 → ICU 04-11 20:27
PROVIDERS: ADMIT Internal Medicine; ATTEND Internal Medicine